=== PATIENT | female | born 1975 | race Asian ===

== ENCOUNTER 2022-04-04 13:33 | Outpatient (CLI) | payer OTHER, SELFPAY ==
--- NOTE | ~2022-04-04 | MMUS_ITS ---
EXAMINATION: MM diagnostic stanislav BI w gt, US breast BI complete HISTORY: TECHNIQUE: Additional 3-D tomosynthesis images of were performed and synthetic 2-D images were genera nahum. CAD analysis was submitted and interpreted. High resolution breast ultrasound was performed. COMPARISON: None BREAST PARENCHYMAL COMPOSITION: The breasts are extremely dense, which lowers the sensitivity of mamm ography. FINDINGS: MAMMOGRAPHIC FINDINGS: No suspicious mass or architectural distortion, Alina calcification, skin thickening or retraction of either breast is evident. The extremely dense tissue may obscure masses. Bilateral complete ultrasound examination was performe d. ULTRASOUND: A normal appearing lymph node is noted in the left axilla. No suspicious mass or shadowing, cyst or other significant sonographic abnormality of either breast i s noted. IMPRESSION: 1. No mammographic evidence of malignancy 2. Routine mammographic screening is recommended BI-RADS Category 1: Negative Reviewed, dictated and finalized at location A. IMPRESSION: 1. No mammographic evidence of malignancy 2. Routine mammographic screening is recommended BI-RADS Category 1: Negative
== END 2022-04-04 13:34 | disposition home or self-care (01) ==
PROVIDERS: PCP Internal Medicine; Visit Provider Nurse Practitioner
DX: N63.0 Unspecified lump in unspecified breast (principal)
CPT/HCPCS: 76641; 77062; 77066; G0279

== ENCOUNTER 2024-07-19 14:50 | Outpatient (CLI) | payer OTHER, SELFPAY ==
--- NOTE | ~2024-07-19 | MM_ITS ---
EXAMINATION: MM screening stanislav BI w gt HISTORY: Screening mammogram TECHNIQUE: Craniocaudal and mediolateral oblique 3-D tomosynthesis images were obtained and synthetic 2-D images were generated. CAD analysis was submitted and interpreted. COMPARISON: 04/04/2022 BREAST PARENCHYMAL COMPOSITION:Dense: The breasts are extremely dense, which lowers the sensitivity o f mammography. FINDINGS: Focal asymmetry noted in the upper right breast on MLO view. No parenchymal abnormalities l eft breast. No suspicious mammographic calcifications. IMPRESSION: Focal asymmetry upper right breast on MLO view. Spot compression and true lateral views, and possibl y ultrasound, are recommended for further evaluation. BI-RADS Category 0: Incomplete: Needs additional imaging evaluation. Reviewed, dictated and finalized at location . AD WINDER IMPRESSION: Focal asymmetry upper right breast on MLO view. Spot compression and true late ral views, and possibly ultrasound, are recommended for further evaluation. BI-RADS Category 0: Incomplete: Needs additional imaging evaluation.
== END 2024-07-19 14:51 | disposition home or self-care (01) ==
PROVIDERS: PCP Internal Medicine; Visit Provider Student in an Organized Health Care Education/Training Program
DX: Z12.31 Encounter for screening mammogram for malignant neoplasm of breast (principal); R92.8 Other abnormal and inconclusive findings on diagnostic imaging of breast
CPT/HCPCS: 77063; 77067

== ENCOUNTER 2024-08-30 13:30 | Outpatient (CLI) | payer OTHER, SELFPAY ==
--- NOTE | ~2024-08-30 | MM_ITS ---
EXAMINATION: MM diagnostic stanislav RT w tg HISTORY: Focal asymmetry within the upper right breast on screening MLO view only TECHNIQUE: ML and mediolateral oblique 3-D tomosynthesis images were obtained and synthetic 2-D image s were generated. COMPARISON: 07/19/2024 and 04/04/2022. Reference is also made to an ultrasound examination dated 022 BREAST PARENCHYMAL COMPOSITION: The breasts are extremely dense, which lowers the sensitivity of mamm ography. FINDINGS: The asymmetry completely effaces with spot compression likely representing a summation hardik fact (overlapping fibroglandular tissues) for which no further follow-up is needed. IMPRESSION: 1. No mammographic or tomographic evidence of malignancy. 2. Recommend resumption of screening mammography in one year. BI-RADS Category 2: Benign finding(s). Reviewed, dictated and finalized at location A. R COVERINGS INSTALLER
--- OUTSIDE RECORDS SUMMARY | 2024-08-30 15:31 | XMS_ITS | Clinical Summary ---
Author Organization [facility] Address [address] [place] [address] Care Team Providers Care Airset Caster Name Role Phone Darien Eduardo MD Primary Care Provider [phone] Allergies No known active allergies Medications triamcinolone (KENALOG) 0.1 % ointment 4 Active albuterol sulfate HFA 108 (90 Base) MCG/ACT inhalerIndicati ons:Bronchitis Inhale 2 puffs into the lungs every 6 (six) hours as needed for Wheezing. 18 g 4 Active Na sulfate-K sulfate-Mg sulfate (SUPREP BOWEL PREP KIT) 17.5-3.13-1.6 GM/177ML SolutionIndicat ions:Screening for colon cancer Take 177 mLs by mouth every 12 (twelve) hours. Per GI instructions 354 mL 5 Active sertraline (ZOLOFT) 25 MG tabletIndicatio ns:Anxiety Take 1 tablet (25 mg total) by mouth daily. 30 tablet 1 5 Active Active Problems Problem Noted Date Diagnosed Date Underweight 04/09/2022 Resolved Problems Problem Noted Date Diagnosed Date Resolved Date Screening for colon cancer 07/29/2024 0 08/01/2024 Atypical squamous cells of u ndetermined significance (ASCUS) on Papanicolaou smear of cervix 02/22/2019 05/19/2024 Overview (05/19/2024): Atyp squam cell of undet signfc cyto smr crvx (ASC-US);Recorded Elsewhere: No Location: [facility] Source: EHR Chronic: N Practice ID: [id number] Billable Time: 10:00:00 AM 39 weeks gestation of ([facility]) 04/30/2017 05/19/2024 Overview (05/19/2024): 39 weeks gestation of ;Practice ID: [id number] Encounters Date Type Department Care Team Description 08/25/2024 Telephone [facility] [place] [address] [facility] [address] [place] [address] Darien Eduardo MD Question 08/12/2024 Telephone [facility] - [facility] [address] [place] [id number] Landon Diallo MD FYI 08/11/2024 Telephone [facility] [place] [address] [facility] [address] [place] [address] Darien Eduardo MD Information 08/11/2024 Telephone [facility] [place] [address] [place] [address] Darien Eduardo MD Referral 08/09/2024 Telephone [facility] [place] [address] [facility] [address] [address] [place] [address] Darien Eduardo MD Follow Up Call 08/01/2024 2:00 PM APICULTURIST [facility] [place] [address] [facility] [address] [address] [place] [address] Darien Eduardo MD Follow Up 08/01/2024 - 08/01/2024 11:59 PM APICULTURIST Hospital Encounter [facility]-[address] [address] Darien Eduardo MD Discharge Disposition: Home or Self Care (Routine Discharge) 08/01/2024 Travel 07/29/2024 Orders Only [facility] Medical [facility] - [facility] [address] [place] [address] Landon Diallo MD 07/19/2024 Scan HEALTH INFO SRVCS Scanned, [facility] Mammogram (SCAN) 06/27/2024 8:40 AM APICULTURIST [facility] [place] [address] [place] [address] Darien Eduardo MD Physical (Pt has been fasting ) 06/27/2024 Telephone [facility] [place] [address] [place] [address] Darien Eduardo MD Medication 06/27/2024 Travel from Last 3 Months Immunizations Name Administration Dates Next Due Fluzone (IIV3, Trivalent, 0.5 ML Prefilled Syrin ge) 06/27/2024 Fluzone 6 Months+ Quad (0.5 mL Prefilled Syringe ) 04/09/2022 Influenza (Generic) 04/02/2017 Influenza Adult (Generic) 05/02/2023,05/15/2021 MODERNA COVID-19 (12+), MRNA , LNP-S, PF, 50 MCG/0.5 ML (SPIKEVAX) 05/02/2023 Tdap (Generic) 04/02/2017 Family History Medical History Relation Comments Cancer Maternal Uncle 1 Tongue cancer Vision loss Maternal Uncle 2 Retinal detachm ent Miscarriages / Stillbirths Mother Relation Status Comments Maternal Uncle 1 Maternal Uncle 2 Mother Social History Tobacco Use Types Packs/Day Years Used Date Smoking Tobacco: Former Cigarettes 0.3 5 0 07/06/2003 - 07/06/2008 Smokeless Tobacco: Never Tobacco Cessation:Counseling Given: Yes Comments:counseled by Dr Eduardo Alcohol Use Standard Drinks/Week Comments Yes 3.3 (1 standard drink = 0.6 oz p ure alcohol) PHQ-2 Answer Date Recorded Patient Health Questionnaire-2 Score 2 08/01/2024 Comments No Sex and Gender Information Value Date Recorded Sex Assigned at Not on file Legal Sex Female 1:30 AM CDT Gender Identity Not on file Sexual Orientation Not on file Last Filed Vital Signs Vital Sign Reading Time Taken Comments Blood Pressure 103/68 08/01/2024 2:01 PM APICULTURIST Pulse 74 08/01/2024 2:01 PM APICULTURIST Temperature 36.6 C (97.8 F) 08/01/2024 2:01 PM APICULTURIST Respiratory Rate 16 08/01/2024 2:01 PM APICULTURIST Oxygen Saturation 99% 08/01/2024 2:01 PM APICULTURIST Inhaled Oxygen Concentration - - Weight 49.5 kg (109 lb 1.6 oz) 08/01/2024 2:01 P M APICULTURIST Height 165.1 cm (5' 5 ) 08/01/2024 2:01 PM APICULTURIST Body Mass Index 18.16 08/01/2024 2:01 PM APICULTURIST Plan of Treatment Upcoming Encounters Date Type Department Care Team (Late st Contact Info) Description 07/03/2025 9:40 AM APICULTURIST Office Visit [facility] Multispecialty Care - [place] [address] [address] [place], [place] [id number] [place] [address] [place] [address] [address] [place] [address] Health Maintenance Due Date Last Done Comments Colorectal Cancer Screening Colonoscopy (10 Years) 1977 Hepatitis B Vaccines (1 of 3 - 19+ 3-dose series) 1996 COVID-19 Vaccine ( season) 2024 05/02/2023, 05/14/2022, 05/15/2021, Additional history exists Annual Physical 06/27/2025 06/27/2024, 04/09/2022 Mammogram Screening 07/19/2026 07/19/2024, 07/19/2024, 04/04/2022 Cervical Cancer Screening Pap with HPV Testing (Age 30 to 64) Every 5 Years 04/01/2027 04/01/2022 DTaP, Tdap and Td Vaccines (2 - Td or Tdap) 04/02/2027 04/02/2017 Cervical Cancer Screening Pap Smear (Age 30 to 64) Every 3 Years 05/23/2027 05/23/2024, 04/01/2022 Cervical Cancer Screening with HPV 05/23/2027 Hepatitis C Completed 04/09/2022 Influenza Adult Completed 06/27/2024, 04/06, 04/09/2022, Additional history exists PHQ-2 (Physician [place]) Completed 08/01/2024 Meningococcal B Vaccine Aged Out No l onger eligible based on patient's age to complete this topic Meningococcal Vaccine Aged Out No ramiro jie eligible based on patient's age to complete this topic Pneumococcal Vaccine: Pediatrics (0 to 5 Years) and At-Risk Patients (6 to 64 Years) Aged Out No longer eligible based on patient's age to complete this topic RSV Immunizations Under 20 Months Aged Out No longer eligible based on patient's age to complete this topic Procedures Procedure Name Priority Date/Time Associated Diagnosis Comments ESTROGEN, TOTAL Routine 08/01/2024 2:48 PM APICULTURIST Drug therapy PROGESTERONE Routine 08/01/2024 2:48 PM APICULTURIST Drug therapy PROLACTIN Routine 08/01/2024 2:48 PM APICULTURIST Drug therapy FSH, FOLLICLE STIM HORMONE Routine 08/01/2024 2:48 PM APICULTURIST Drug therapy LH, LUTEINIZING HORMONE Routine 08/01/2024 2:48 PM APICULTURIST Drug therapy COLLECTION VENOUS BLOOD VENIPUNCTURE Routine 08/01/2024 2:16 PM APICULTURIST Drug therapy MAMMOGRAM GENERIC (SCAN ORDER) 07/19/2024 MAMMOGRAM GENERIC (SCAN ORDER) 07/19/2024 HEMOGLOBIN, GLYCOSYLATED Routine 06/27/2024 9:27 AM APICULTURIST Annual physical exam General medical exam Screening for diabetes mellitus Drug therapy TSH W/REFLEX Routine 06/27/2024 9:27 AM APICULTURIST Annual physical exam General medical exam Screening for hypothyroidism Drug therapy LIPID PANEL Routine 06/27/2024 9:27 AM APICULTURIST Annual physical exam General medical exam Screening for hyperlipidemia Drug therapy COMPREHENSIVE METABOLIC PANEL Routine 06/27/2024 9:27 AM APICULTURIST Annual physical exam General medical exam Drug therapy CBC W/DIFF AUTOMATED Routine 06/27/2024 9:27 AM APICULTURIST Annual physical exam General medical exam Drug therapy COLLECTION VENOUS BLOOD VENIPUNCTURE Routine 06/27/2024 9:06 AM APICULTURIST Annual physical exam General medical exam Drug therapy URINALYSIS AUTO DIP Routine 06/27/2024 Annual physical exam General medical exam Drug therapy HEPATITIS C ANTIBODY Routine 04/09/2022 12:06 PM CDT Annual physical exam Encounter for medical examination to establish care General medical exam Encounter for hepatitis C screening test for low risk patient OUTSIDE CYTOPATH CERV/VAG INTERPRET (PAP) 04/01/2022 from Last 3 Months or Most Recently Relevant to Health Maintenance Results * LH, LUTEINIZING HORMONE (08/01/2024 2:48 PM APICULTURIST) Luteinizing Hormone 4.6 MIU/ML 08/01 9:04 PM APICULTURIST [facility] Comment: FOLLIC PHASE: 1.9 TO 12.8 mIU/mL MID CYCLE: 22.8 TO 76.1 mIU/mL LUTEAL PHASE: 0.6 TO 13.5 mIU/mL POST MENOPAUSAL W/O HRT: 8.6 TO 61.8 mIU/mL ASSAY PERFORMED BY CHEMILUMINESCENCE METHODOLOGY USING SIEMENS [employer]. PATIENT RESULTS DETERMINED BY ASSAYS USING DIFFERENT MANUFACTURERS FOR METHODS MAY NOT BE COMPARABLE. 08/01/2024 2:48 PM APICULTURIST Darien Eduardo MD LABORATORY Final Result [facility] [address] [place] [address], [id number] * FSH, FOLLICLE STIM HORMONE (08/01/2024 2:48 PM APICULTURIST) FSH 3.9 MIU/ML 08/01/2024 9:04 PM APICULTURIST [facility] Comment: FOLLIC PHASE: 2.3 TO 12.6 mIU/mL MID CYCLE: 5.2 TO 17.5 mIU/mL LUTEAL PHASE: 1.7 TO 12.9 mIU/mL POST MENOPAUSAL NOT ON THERAPY: 12.7 TO 132.2 mIU/mL ASSAY PERFORMED BY CHEMILUMINESCENCE METHODOLOGY USING SIEMENS [employer] [place]. PATIENT RESULTS DETERMINED BY ASSAYS USING DIFFERENT MANUFACTURERS FOR METHODS MAY NOT BE COMPARABLE. 08/01/2024 2:48 PM APICULTURIST Darien Eduardo MD LABORATORY Final Result Performing Organization Address City/[facility]/ZIP Co de Phone Number [facility] [address] [place] [phone], [id number] * ESTROGEN, TOTAL ([facility] ONLY) (08/01/2024 2:48 PM APICULTURIST) ESTROGEN TOTAL S/P/B 521 pg/mL [facility] Comment: Reference Ranges for Total Estrogen: Follicular Phase: 51-601 Luteal Phase: 87-1194 Postmenopausal: < or = 214 08/01/2024 2:48 PM APICULTURIST 08/03/2024 6:01 AM APICULTURIST Narrative Resulting Agency Comment Performing Organization Information: Site ID: [id number] Name: [employer]/[facility], Address: [address] [place] [phone] Director: Em Toledo MD,PhD,LAYNE Draien Eduardo MD LABORATORY Final Result Performing Organization Address City/[facility] de Phone Number KARINA PATTON - RADHA ORDERS [facility] [address] [place] [phone], * PROGESTERONE (08/01/2024 2:48 PM APICULTURIST) PROGESTERONE 0.5 NG/ML 08/01/2024 9:04 PM APICULTURIST [facility] Comment: FOLLIC PHASE: 0.2 TO 1.7 ng/mL LUTEAL PHASE: 2.3 TO 24.2 ng/mL POST MENAPAUSAL: <0.2 TO 0.9 ng/mL 1ST TRIMESTER: 11.4 TO 41.0 ng/mL 2ND TRIMESTER: 13.9 TO 156.0 ng/mL 3RD TRIMESTER: 51.4 TO >200.0 ASSAY PERFORMED BY CHEMILUMINESCENCE METHODOLOGY USING SIEMENS [employer]ENT. PATIENT RESULTS DETERMINED BY ASSAYS USING DIFFERENT MANUFACTURERS FOR METHODS MAY NOT BE COMPARABLE. 08/01/2024 2:48 PM APICULTURIST Darien Eduardo MD LABORATORY Final Result Performing Organization Address [facility] de Phone Number [facility] [address] [place] [address], [id number] * PROLACTIN (08/01/2024 2:48 PM APICULTURIST) PROLACTIN 17.8 2.2 - 30.3 NG/ML 08/01/2024 9:04 PM APICULTURIST [facility] Comment: ASSAY PERFORMED BY CHEMILUMINESCENCE METHODOLOGY USING SIEMENS [employer]. PATIENT RESULTS DETERMINED BY ASSAYS USING DIFFERENT MANUFACTURERS FOR METHODS MAY NOT BE COMPARABLE. 08/01/2024 2:48 PM APICULTURIST Darien Eduardo MD LABORATORY Final Result Performing Organization Address [facility] de Phone Number [facility] [address] [place] [address], [id number] * MAMMOGRAM GENERIC (SCAN ORDER) (07/19/2024) Only the most recent of2 resultswithin the time period is included. Anatomical Region Laterality Modality Other 07/19/2024 [facility] Scanned SCANNING Final Resu lt * TSH W/REFLEX (06/27/2024 9:27 AM APICULTURIST) TSH 1.629 0.358 - 3.740 uIU/ML 06/27/2024 3:00 PM APICULTURIST [facility] 06/27/2024 9:27 AM APICULTURIST us Darien Eduardo MD LABORATORY Final Result Performing Organization Address City/[facility] Co de Phone Number ESTEBAN PIERREHUTin [place] [address] [place] [address], [place] [phone] * HEMOGLOBIN, GLYCOSYLATED (06/27/2024 9:27 AM APICULTURIST) HGB A1C 5.3 4.5 - 6.2 % 06/27/2024 3:27 PM APICULTURIST [facility] ESTIMATED AVG GLUCOSE 105 74 - 106 MG/DL 06/27/2024 3:27 PM APICULTURIST [facility] 06/27/2024 9:27 AM APICULTURIST us Darien Eduardo MD LABORATORY Final Result Performing Organization Address [facility] Co de Phone Number [facility] [place] [address] [place] [address], [place] [phone] * COMPREHENSIVE METABOLIC PANEL (06/27/2024 9:27 AM APICULTURIST) SODIUM S/P/B 144 136 - 145 MMOL/L 06/27/2024 3:00 PM APICULTURIST [facility] POTASSIUM S/P/B 4.2 3.5 - 5.1 MMOL/L 06/27/2024 3:00 PM APICULTURIST [facility] CHLORIDE S/P/B 106 98 - 107 MMOL/L 06/27/2024 3:00 PM APICULTURIST [facility] CO2 31.8 21 - 32 MMOL/L 06/27/2024 3:00 PM [facility] GLUCOSE 92 70 - 99 MG/DL 06/27/2024 3:00 PM [facility] BUN 12 7 - 18 MG/DL 06/27/2024 3:00 PM [facility] CREATININE S/P/B 0.68 0.55 - 1.02 MG/DL 06/27/2024 3:00 PM [facility] CALCIUM S/P/B 8.4 8.4 - 10.5 MG/DL 06/27/2024 3:00 PM [facility] BILIRUBIN TOTAL S/P/B 0.5 0.2 - 1.0 MG/DL 06/27/2024 3:00 PM [facility] ALKALINE PHOSPHATASE S/P/B 89 39 - 100 U/L 06/27/2024 3:00 PM [facility] AST 18 15 - 37 U/L 06/27/2024 3:00 PM [facility] ALT 23 14 - 59 U/L 06/27/2024 3:00 PM [facility] TOTAL PROTEIN S/P/B 7.1 6.4 - 8.2 G/DL 06/27/2024 3:00 PM [facility] ALBUMIN S/P/B 3.7 3.4 - 5.0 G/DL 06/27/2024 3:00 PM [facility] ANION GAP 6.2 5 - 15 MMOL/L 06/27/2024 3:00 PM [facility] Comment:REFERENCE RANGE NOT ESTABLISHED OSMOLALITY (CALC) 297 MOSM/KG 024 3:00 PM [facility] Comment:REFERENCE RANGE NOT ESTABLISHED GFR ESTIMATE >90 >90 ML/MIN/1. 73 M2 06/27/2024 3:00 PM [facility] GFR NOTES GFR REFERENCE S: 06/27/2024 3:00 PM [facility] Comment: THE ESTIMATED GFR IS CALCULATED USING THE 2020 CKD-EPI EQUATION. THE FOLLOWING CATEGORIES FOR GRADING RENAL FUNCTION ARE RECOMMENDED BY THE INTERNATIONAL SOCIETY OF NEPHROLOGY (KDIGO 2012 CLINICAL PRACTICE GUIDELINE). G1,NORMAL OR HIGH: >89 ml/min/1.73 m2 G2,MILDLY DECREASED: 60-89 ml/min/1.73 m2 G3A,MILDLY TO MODERATELY DECREASED: 45-59 ml/min/1.73 m2 G3B,MODERATELY TO SEVERELY DECREASED: 30-44 ml/min/1.73 m2 G4,SEVERELY DECREASED: 15-29 ml/min/1.73 m2 G5,KIDNEY FAILURE: <15 ml/min/1.73 m2 06/27/2024 9:27 AM APICULTURIST us Darien Eduardo MD LABORATORY Final Result [facility] [address] [place] [address], * LIPID PANEL (06/27/2024 9:27 AM APICULTURIST) CHOLESTEROL 156 <200 MG/DL 06/27/2024 3:00 PM [facility] TRIGLYCERIDES 48 <150 MG/DL 06/27/2024 3:00 PM [facility] HDL 80 >40 MG/DL 06/27/2024 3:00 PM APICULTURIST [facility] LDL-C 66 <100 MG/DL 06/27/2024 3:00 PM [facility] VLDL CALCULATION 10 5 - 28 MG/DL 06/27/2024 3:00 PM [facility] CHOL/HDL RATIO 2.0 0.0 - 4.0 06/27/2024 3:00 PM [facility] LDL/HDL 0.8 0.41 - 2.13 06/27/2024 3:00 PM APICULTURIST [facility] NON HDL CHOLESTEROL 76 <140 MG/DL 06/27/2024 3:00 PM APICULTURIST [facility] 06/27/2024 9:27 AM APICULTURIST us Darien Eduardo MD LABORATORY Final Result [facility] [place] [address] [place] [address], * (ABNORMAL) CBC W/DIFF AUTOMATED (06/27/2024 9:27 AM APICULTURIST) [facility] WBC 5.44 4.00 - 10.80 x10'3/uL 06/27/2024 2:56 PM APICULTURIST [facility] RBC 4.61 4.10 - 5.40 x10'6/uL 06/27/2024 2:56 PM APICULTURIST [facility] HGB 14.0 12.0 - 16.0 G/DL 06/27/2024 2:56 PM [facility] HCT 43.3 36.0 - 47.0 % 06/27/2024 2:56 PM [facility] MCV 93.9 78.0 - 100.0 FL 06/27/2024 2:56 PM [facility] MCH 30.4 27.0 - 31.0 PG 06/27/2024 2:56 PM [facility] MCHC 32.3(L) 33.0 - 36.0 G/DL 06/27/2024 2:56 PM [facility] RDW 12.7 11.5 - 14.5 % 06/27/2024 2:56 PM [facility] PLT 217 150 - 350 x10'3/uL 06/27/2024 2:56 PM [facility] MPV 10.5(H) 7.4 - 10.4 FL 06/27/2024 2:56 PM [facility] DIFFERENTIAL TYPE AUTOMATED DIFFERENTIAL 06/27/2024 2:56 PM [facility] NEUTROPHILS % 56.5 % 06/27/2024 2:56 PM [facility] LYMPHOCYTES % 32.4 % 06/27/2024 2:56 PM [facility] MONOCYTES % 8.1 % 06/27/2024 2:56 PM APICULTURIST [facility] EOSINOPHILS % 1.7 % 06/27/2024 2:56 PM APICULTURIST [facility] BASOPHILS % 1.1 % 06/27/2024 2:56 PM APICULTURIST [facility] IMMATURE GRANS % 0.2 % 06/27/2024 2:56 PM APICULTURIST [facility] ABS. NEUTROPHILS 3.08 1.60 - 8.30 x10'3/uL 06/27/2024 2:56 PM APICULTURIST [facility] ABS. LYMPHOCYTES 1.76 0.80 - 4.70 x10'3/uL 06/27/2024 2:56 PM APICULTURIST [facility] ABS. MONOCYTES 0.44 0.00 - 1.50 x10'3/uL 06/27/2024 2:56 PM APICULTURIST [facility] ABS. EOSINOPHILS 0.09 0.00 - 0.40 x10'3/uL 06/27/2024 2:56 PM APICULTURIST [facility] ABS. BASOPHILS 0.06 0.00 - 0.20 x10'3/uL 06/27/2024 2:56 PM APICULTURIST [facility] ABS. IMMATURE GRANULOCYTES 0.01 0.00 - 0.03 x10'3/uL 06/27/2024 2:56 PM APICULTURIST [facility] 06/27/2024 9:27 AM APICULTURIST us Darien Eduardo MD LABORATORY Final Result [facility] [address] [place] [address], * URINALYSIS AUTO DIP (06/27/2024) COLOR (U) YELLOW YELLOW [address], [place] TRANSPARENCY CLEAR CLEAR [address], [place] GLUCOSE (U) NEGATIVE NEGATIVE MG/DL [address], [place] BILIRUBIN (U) NEGATIVE NEGATIVE MG[address], [place] KETONES MG/DL (U) NEGATIVE NEGATIVE MG/DL [address], [place] SPECIFIC GRAVITY (U) >=1.030 1.001 - 1.035 [address], [place] BLOOD (U) NEGATIVE NEGATIVE [address], [place] U PH 6.0 5.0 - 9.0 [address], [place] PROTEIN (U) NEGATIVE NEGATIVE mg/dL [address], [place] UROBILINOGEN 0.2 0.2 - 1.0 EU/dL = mg/dL MG[address], [place] NITRITES NEGATIVE NEGATIVE MG/DL MG[address], [place] LEUKOCYTES (U) NEGATIVE NEGATIVE MG-[address], [place] URINE SPECIMEN OBTAINED BY CLEAN CATCH PROCEDURE / Unknown 06/27/2024 us Darien Eduardo MD URINE ORDERABLES Final Result [address], [place] [address] [place] [address], [place] [phone] * HEPATITIS C AB ([facility] ONLY) (04/09/2022 12:06 PM CDT) HEPATITIS C AB NON-REACTI VE NON-REACT LOUISA 04/09/2022 10:08 PM CDT [facility] Comment: ANTIBODIES TO HCV NOT DETECTED. DOES NOT EXCLUDE THE POSSIBILITY OF EXPOSURE TO HCV. 04/09/2022 12:0 6 PM CDT us Darien Eduardo MD LABORATORY Final Result [facility] [address] [place] [address], [place] [phone] [id number] * PAP SMEAR WITH HPV (04/01/2022) 04/01/2022 [facility] Scanned SCANNING Final Resu lt from Last 3 Months or Most Recently Relevant to Health Maintenance Insurance [facility] Care Teams Airset Caster Relationship Specialty Start Date End Date Darien Eduardo MD [address] [place] [id number] PCP - General INTERNAL MEDICINE 04/09/22
--- OUTSIDE RECORDS SUMMARY | 2024-08-30 15:31 | XMS_ITS | Referral Summary ---
Author Organization [facility] Address [address] [place] [address] Care Team Providers Care Pediatric Cns Name Role Phone Angela Jung MD Primary Care Provider [phone] Liz Parikh GRANULAR OPERATOR-VPK TEACHER Unavailable Source Comments [facility],non-owned Affiliates and Associated Physician Practices is amultiple site organization consisting of ambulatory clinics and hospital sitesin [place], [place], [place] and [place]. This disclosure is being madepursuant to the Care Everywhere program and may not contain all information available regarding this patient. Last updated 18.[facility] Allergies No known active allergies Medications * Be aware that medications may not be up to date on this document. Alwaysverify current medications with the patient. Medication Sig Dispensed Refills Start Date End Date Status w/o A Vit-Fe Fum-FA (PRENATA PO) Active Ferrous Gluconate (IRON 27 PO) Active Social History Tobacco Use Types Packs/Day Years Used Date Smoking Tobacco: Never Smokeless Tobacco: Never Sex and Gender Information Value Date Recorded Sex Assigned at Not on file Gender Identity Not on file Sexual Orientation Not on file Last Filed Vital Signs Vital Sign Reading Time Taken Comments Blood Pressure 88/60 03/06/2017 3:17 PM CDT Pulse 93 03/06/2017 3:17 PM CDT Temperature 36.9 C (98.4 F) 03/06/2017 3:17 PM CDT Respiratory Rate 16 03/06/2017 3:17 PM CDT Oxygen Saturation 98% 03/06/2017 3:17 PM CDT Inhaled Oxygen Concentration - - Weight 52.2 kg (115 lb) 03/06/2017 3:17 PM CDT Height 160 cm (5' 3 ) 03/06/2017 3:17 PM CDT Body Mass Index 20.37 03/06/2017 3:17 PM CDT Plan of Treatment Not on file Procedures Procedure Name Priority Date/Time Associated Diagnosis Comments MAMMO BILAT DIAGNOSTIC Routine 04/04/2022 from Last 3 Months or Most Recently Relevant to Health Maintenance Results * MAMMO BILAT DIAGNOSTIC (04/04/2022) Anatomical Region Laterality Modality Breast Bilateral Mammography Scanned Document MAMMO ORDERABLES from Last 3 Months or Most Recently Relevant to Health Maintenance Care Teams Pediatric Cns Relationship Specialty Start Date End Date Angela Jung MD [address] [place] [address] PCP - General Family Medicine 03/06/17 Liz Parikh, YON-VPK TEACHER [address] [place] [address] Nurse Practitioner [facility] 04/09/22
--- OUTSIDE RECORDS SUMMARY | 2024-08-30 15:31 | XMS_ITS | Clinical Summary ---
Author Organization [facility] - [facility] Address [address] [place] [address] Phone Care Team Providers Care Residential Leasing Manager Name Role Phone José Miguel Prince MD Primary Care Provider Social History Tobacco Use Types Packs/Day Years Used Date Smoking Tobacco: Never Assessed Comments Unknown Sex and Gender Information Value Date Recorded Sex Assigned at Not on file Legal Sex Female 10:07 AM PARTS FINISHER Gender Identity Not on file Sexual Orientation Not on file Plan of Treatment Health Maintenance Due Date Last Done Comments DTAP/TDAP/TD VACCINES (1 - Tdap) 1996 HEPATITIS B VACCINES (1 of 3 - 19+ 3-dose series) 02/1996 CERVICAL CANCER SCREENING 2007 BREAST CANCER SCREENING 2017 COLORECTAL SCREENING 2022 Colorectal Cancer Screening 2022 FIT-DNA Q 3 years 2022 FIT/FOBT Q 1 year 2022 Flex Sig/CT Colonography Q 5 years 2022 INFLUENZA VACCINE (#1) 2024 Insurance [employer] OPEN ACCESS HMO Care Teams Residential Leasing Manager Relationship Specialty Start Date End Date José Miguel Prince MD PCP - General Family Practice 07/29/12
--- OUTSIDE RECORDS SUMMARY | 2024-08-30 15:31 | XMS_ITS | Referral Summary ---
Author Organization [facility] Address [address] [place] [address] Care Team Providers Care Server Manager Name Role Phone Darien Eduardo MD Primary Care Provider [phone] Allergies No known active allergies Medications hydrocortisone 2.5 % cream hydrocortisone 2.5 % topical cream Active levonorgestreL (Mirena) IUD Mirena 21 mcg/24 hours (8 yrs) 52 mg intrauterine device 7 Active metroNIDAZOLE (METROGEL) 0.75 % (37.5mg/5 gram) vaginal gel daily Active albuterol HFA (PROVENTIL HFA,VENTOLIN HFA,PROAIR HFA) 90 mcg/actuation inhaler Inhale 2 puffs every 6 (six) hours as needed 3 Active azithromycin (ZITHROMAX) 250 mg tablet 3 Active benzonatate (TESSALON) 200 mg capsule 3 Active methylPREDNISo lone (MEDROL DOSEPACK) 4 mg Dosepack 3 Active methylPREDNISo lone (MEDROL) 4 mg tablet 6 TABLETS ON DAY ONE, 5 TABLETS DAY TWO, 4 TABLETS DAY THREE, 3 TABLETS DAY FOUR, 2 TABLETS DAY FIVE, AND 1 TABLET DAY SIX 3 Active Active Problems Problem Noted Date Diagnosed Date Underweight 04/09/2022 Atypical squamous cells of u ndetermined significance (ASCUS) on Papanicolaou smear of cervix 02/22/2019 Overview (04/24/2023): Atyp squam cell of undet signfc cyto smr crvx (ASC-US);Recorded Elsewhere: No Location: [facility] Source: EHR Chronic: N Practice ID: [id number] Billable Time: 10:00:00 AM Precipitate labor 04/30/2017 Overview (04/24/2023): Precipitate labor;Practice ID: [id number] Hemorrhage affecting 09/23/2016 Overview (04/24/2023): Other hemorrhage in early ;Recorded Elsewhere: No Location: [facility] Source: EHR Chronic: N Practice ID: [id number] Billable Time: 10:00:00 AM Secondary amenorrhea 09/17/2016 Overview (04/24/2023): Secondary amenorrhea;Recorded Elsewhere: No Location: [facility] Source: EHR Chronic: N Practice ID: [id number] Billable Time: 02:15:00 PM Delivery normal 11/30/2012 Overview (04/24/2023): Normal delivery;Practice ID: [id number] Uterine size-date discrepancy 06/06/2012 Overview (04/24/2023): UTERINE SIZE SMOOTH-ANTEPAR;Recorded Elsewhere: No Location: [facility] Source: EHR Chronic: N Practice ID: [id number] Billable Time: 02:00:00 PM Amenorrhea 05/18/2012 Overview (04/24/2023): Absence of menstruation;Recorded Elsewhere: No Location: [facility] Source: EHR Chronic: N Practice ID: [id number] Billable Time: 03:30:00 PM Social History Tobacco Use Types Packs/Day Years Used Date Smoking Tobacco: Never Assessed Comments Unknown Sex and Gender Information Value Date Recorded Sex Assigned at Not on file Legal Sex Female 11:38 AM CDT Gender Identity Not on file Sexual Orientation Not on file Last Filed Vital Signs Vital Sign Reading Time Taken Comments Blood Pressure 104/60 04/24/2023 5:03 PM CDT Pulse 68 04/24/2023 5:03 PM CDT Temperature 37.2 C (98.9 F) 04/24/2023 5:03 PM CDT Respiratory Rate 20 04/24/2023 5:03 PM CDT Oxygen Saturation 99% 04/24/2023 5:03 PM CDT Inhaled Oxygen Concentration - - Weight 47.6 kg (105 lb) 04/24/2023 5:03 PM CDT Height 160 cm (5' 3 ) 04/24/2023 5:03 PM CDT Body Mass Index 18.6 04/24/2023 5:03 PM CDT Plan of Treatment Not on file Insurance [employer] Care Teams Server Manager Relationship Specialty Start Date End Date Darien Eduardo MD [address] [place] [id number] PCP - General Internal Medicine 10/22/22
--- OUTSIDE RECORDS SUMMARY | 2024-08-30 15:31 | XMS_ITS | Clinical Summary ---
Author Organization [facility] Address [address] [place] [address] Care Team Providers Care Director Graphics Name Role Phone Darien Eduardo MD Primary Care Provider [phone] Allergies No known active allergies Medications hydrocortisone [...] cyto smr crvx (ASC-US);Recorded Elsewhere: No Location: [facility] Source: EHR Chronic: N Practice ID: [id number] Billable Time: 10:00:00 AM Precipitate labor 04/30/2017 Overview (04/24/2023): Precipitate labor;Practice ID: [id number] Hemorrhage affecting 09/23/2016 Overview (04/24/2023): Other hemorrhage in early ;Recorded Elsewhere: No Location: [facility] Source: EHR Chronic: N Practice ID: [id number] Billable Time: 10:00:00 AM Secondary amenorrhea 09/17/2016 Overview (04/24/2023): Secondary amenorrhea;Recorded Elsewhere: No Location: [facility] Source: EHR Chronic: N Practice ID: [id number] Billable Time: 02:15:00 PM Delivery normal 11/30/2012 Overview (04/24/2023): Normal delivery;Practice ID: [id number] Uterine size-date discrepancy 06/06/2012 Overview (04/24/2023): UTERINE SIZE SMOOTH-ANTEPAR;Recorded Elsewhere: No Location: [facility] Source: EHR Chronic: N Practice ID: [id number] Billable Time: 02:00:00 PM Amenorrhea 05/18/2012 Overview (04/24/2023): Absence of menstruation;Recorded Elsewhere: No Location: [facility] Source: EHR Chronic: N Practice ID: [id number] Billable Time: 03:30:00 PM Social History Tobacco Use Types Packs/Day Years Used Date Smoking Tobacco: Never Assessed Comments Unknown Sex and Gender Information Value Date Recorded Sex Assigned at Not on file Legal Sex Female 11:38 AM CDT Gender Identity Not on file Sexual Orientation Not on file Obstetrics History Last Filed Vital Signs Vital Sign Reading [...] 04/24/2023 5:03 PM CDT Plan of Treatment Health Maintenance Due Date Last Done Comments Breast Cancer Screening-Mammogram 1977 Cervical Cancer Screening 1977 Colon Cancer Screening-Colonoscopy 1977 Depression Screening 1977 Hepatitis C Screening 1977 Hepatitis B Screening 1995 Regular Well Visit/Exam 18-64 1995 Covid-19 Vaccine ( season) 2024 05/14/2022, 05/15/2021, 09/13/2020 Influenza Vaccine (#1) 2024 , 05/15/2021, 05/15/2021, Additional history exists DTaP/Tdap/Td Vaccine (2 - Td or Tdap) 04/02/2027 04/02/2017 Pneumococcal vaccine <65 Aged Out No longer eligible based on patient's age to complete this topic Insurance [employer] Care Teams Director Graphics Relationship Specialty Start Date End Date Darien Eduardo MD [address] [place] [address] PCP - General Internal Medicine 10/22/22
--- OUTSIDE RECORDS SUMMARY | 2024-08-30 15:31 | XMS_ITS | Patient Health Summary ---
Author Organization [facility] Address [address] [place] [address] Care Team Providers Care Mailing Specialist Name Role Phone Angela Jung MD Primary Care Provider [phone] Liz Parikh APRN-NETWORK RELATIONS CONSULTANT Unavailable Note from [facility],non-owned Affiliates and Associated Physician Practices is amultiple site organization consisting of ambulatory clinics and hospital sitesin [place], [place], [place] and [place]. This disclosure is being madepursuant to the Care Everywhere program and may not contain all information available regarding this patient. Last updated 18.[facility] Allergies No known active allergies Medications * Be aware that medications may not be up to date on this document. Alwaysverify current medications with the patient. * w/o A Vit-Fe Fum-FA (PRENATA PO) * Ferrous Gluconate (IRON 27 PO) Social History Tobacco Use Types Packs/Day Years [...] Mass Index 20.37 03/06/2017 3:17 PM CDT Procedures * US BREAST BILATERAL COMPLETE(Performed 04/04/2022) * MAMMO BILAT DIAGNOSTIC(Performed 04/04/2022) Results * MAMMO BILAT DIAGNOSTIC (04/04/2022) Anatomical Region Laterality Modality Breast Bilateral Mammography Scanned Document MAMMO ORDERABLES * US BREAST BILATERAL COMPLETE (04/04/2022) Anatomical Region Laterality Modality Breast Bilateral Ultrasound Scanned Document US ORDERABLES Care Teams Mailing Specialist Relationship Specialty Start Date End Date Angela Jung MD [address] [place] [address] PCP - General Family Medicine 03/06/17 Liz Parikh, YON-NETWORK RELATIONS CONSULTANT [address] [place] [address] Nurse Practitioner [facility] 04/09/22
--- OUTSIDE RECORDS SUMMARY | 2024-08-30 15:31 | XMS_ITS | Data Portability ---
Author Organization [facility] Address [address] [place] [address] Care Team Providers Care Jigman Name Role Phone CHANG COX Primary Care Provider Assessment Encounter Date Assessment Date Assessment LastModified by Organization Details LastModified Time 03/18/2021 03/18/2021 Annual gynecological exam performed. Patient will come back in a year unless there are new symptoms. Not available 03/18/2021 11:50:05 04/01/2022 04/01/2022 Annual gynecological exam performed. Patient will come back in a year unless there are new symptoms. Not available 04/01/2022 10:40:46 05/23/2024 05/23/2024 Annual gynecological exam performed. Patient will come back in a year unless there are new symptoms. [email or web address] Not available 05/19/2024 16:45:18 Plan of Treatment Reminders Order Date Submit Date Provider Last Modified By Organization Details Last Modified Time Details Appointments None recorded . Lab pap, IG + HR HPV - HPV regardle ss but if HPV is positive need subtypin g 16,18/45 2023 024 [facility] (Lab), [address], [place], [address], 4 16:17:51 prolacti n, serum 2021 022 [facility] (Lab), [address], [place], [address], 2 06:32:25 TSH, serum or plasma 2021 022 [facility] (Lab), [address], [place], [address], 2 06:32:25 lipid panel, blood 2020 021 [facility] (Lab), [address], [place], [address], 1 04:16:38 CBC w/ auto diff 2020 021 [facility] (Lab), [address], [place], [address], 1 04:16:37 CMP, serum or plasma 2020 021 [facility] (Lab), [address], [place], [address], 1 04:16:38 TSH, serum or plasma 2020 021 [facility] (Lab), [address], [place], [address], 1 04:16:39 HbA1c (hemoglo bin A1c), blood 2020 021 [facility] (Lab), [address], [place], [address], 1 04:16:39 vitamin D, 25-hydro xy, total, serum 2020 021 [facility] (Lab), [address], [place], [address], 1 04:16:40 lh + FSH, serum 2020 021 [facility] (Lab), [address], [place], [address], 1 04:16:40 Referral None recorded . Procedures colonosc opy screenin g (PROC) 2023 [facility], [address], [place], [address], 4 15:42:48 Surgeries None recorded . Imaging MAMMO, screenin g, digital, bilatera l 2023 [facility], [address], [place], [address], 4 04:02:25 MAMMO, diagnost ic, digital, bilatera l 2021 [facility], [address], [place], [address], 2 10:37:56 US, breast, bilatera l, complete 2021 022 [email or web address], [address], [place], [address], 2 13:06:41 Medication Orders triamcin olone acetonid e 0.1 % topical ointment [address] [facility], [place], [address], 4 15:42:46 metronid azole 0.75 % (37.5 mg/5 gram) vaginal gel [address] [facility] [address], [address], [place], [address], 4 15:42:46 metronid azole 0.75 % (37.5 mg/5 gram) vaginal gel 2021 022 [id number], [address], [place], [place], [id number], 4 16:45:14 Metrogel Vaginal 0.75 % (37.5 mg/5 gram) 2020 021 [id number], [address], [place], [place], [id number], 4 16:45:14 Patient TargetsNo targets recorded. Patient InstructionsNo instructions recorded. Reason for Referral None Reported. Results Created Date Observation Date Name Description Value Unit Range Abnormal Flag Note LastModifiedBy Organization Detail LastModifiedTime 03/18/2003/18/2021 CBC W/DIF F WBC 6.5 10'3/ uL 3.6-10 .2 Not Available [facility] (Lab) [address], [place], [address], 03/19/2021 04:16:37 03/18/20 21 03/18/2021 CBC W/DIF F RBC 4.20 10'6/ uL (based on docume nted legal sex) 4.10-5 .30 Not Available [facility] (Lab) [address], [place], [address], 03/19/2021 04:16:37 03/18/2003/18/2021 CBC W/DIF F HGB 12.9 g/dL (based on docume nted legal sex) 11.9-1 5.8 Not Available [facility] (Lab) [address], [place], [address], 03/19/2021 04:16:37 03/18/20 21 03/18/2021 CBC W/DIF F HCT 40.9 % (based on docume nted legal sex) 37.4-4 8.3 Not Available [facility] (Lab) [address] [place], [address], 03/19/2021 04:16:37 03/18/20 21 03/18/2021 CBC W/DIF F MCV 97.0 fL 82.0-9 9.0 Not Available [facility] (Lab) [address], [place], [address], 03/19/2021 04:16:37 03/18/20 21 03/18/2021 CBC W/DIF F MCH 31.0 pg 27.0-3 3.0 Not Available [facility] (Lab) [address], [place], [address], 03/19/2021 04:16:37 03/18/20 21 03/18/2021 CBC W/DIF F MCHC 32.0 g/dL 32.0-3 6.0 Not Available [facility] (Lab) [address], [place], [address], 03/19/2021 04:16:37 03/18/20 21 03/18/2021 CBC W/DIF F RDW 13.0 % 11.0-1 5.0 Not Available [facility] (Lab) [address], [place], [address], 03/19/2021 04:16:37 03/18/20 21 03/18/2021 CBC W/DIF F plt 186 10'3/ uL 150-45 0 Not Available [facility] (Lab) [address], [place], [address], 03/19/2021 04:16:37 03/18/20 21 03/18/2021 CBC W/DIF F MPV 11.1 fL 9.8-12 .7 Not Available [facility] (Lab) [address], [place], [address], 03/19/2021 04:16:37 03/18/20 21 03/18/2021 CBC W/DIF F NRBC's 0.00 % 0 Not Available [facility] (Lab) [address], [place], [address], 03/19/2021 04:16:37 03/18/20 21 03/18/2021 CBC W/DIF F absolute NRBCs 0.0 10'3/ uL 0 Not Available [facility] (Lab) [address], [place], [address], 03/19/2021 04:16:37 03/18/20 21 03/18/2021 CBC W/DIF F neutrophils 59.0 % 37.0-7 2.0 Not Available [facility] (Lab) [address], [place], [address], 03/19/2021 04:16:37 03/18/20 21 03/18/2021 CBC W/DIF F lymphocytes 31.0 % 16.0-4 8.0 Not Available [facility] (Lab) [address], [place], [address], 03/19/2021 04:16:37 03/18/20 21 03/18/2021 CBC W/DIF F monocytes 8.0 % 4.0-14 .0 Not Available [facility] (Lab) [address], [place], [address], 03/19/2021 04:16:37 03/18/20 21 03/18/2021 CBC W/DIF F eosinophils 1.0 % 0.0-9. 0 Not Available [facility] (Lab) [address], [place], [address], 03/19/2021 04:16:37 03/18/20 21 03/18/2021 CBC W/DIF F basophils 1.0 % 0.0-2. 0 Not Available [facility] (Lab) [address], [place], [address], 03/19/2021 04:16:37 03/18/20 21 03/18/2021 CBC W/DIF F immature granulocytes 0.0 % no define d refere nce range Not Available [facility] (Lab) [address], [place], [address], 03/19/2021 04:16:37 03/18/20 21 03/18/2021 CBC W/DIF F absolute neutrophils 3.8 10'3/ uL 1.1-6. 0 Not Available [facility] (Lab) [address], [place], [address], 03/19/2021 04:16:37 03/18/20 21 03/18/2021 CBC W/DIF F absolute lymphocytes 2.0 10'3/ uL 0.7-3. 4 Not Available [facility] (Lab) [address], [place], [address], 03/19/2021 04:16:37 03/18/20 21 03/18/2021 CBC W/DIF F absolute monocytes 0.5 10'3/ uL 0.3-1. 0 Not Available [facility] (Lab) [address], [place], [address], 03/19/2021 04:16:37 03/18/20 21 03/18/2021 CBC W/DIF F absolute eosinophils 0.1 10'3/ uL 0.0-0. 6 Not Available [facility] (Lab) [address], [place], [address], 03/19/2021 04:16:37 03/18/20 21 03/18/2021 CBC W/DIF F absolute basophils 0.1 10'3/ uL 0.0-0. 1 Not Available [facility] (Lab) [address], [place], [address], 03/19/2021 04:16:37 03/18/20 21 03/18/2021 CBC W/DIF F absolute immature granulocytes 0.00 10'3/ uL 0.00-0 .10 2020 2:30 AM: P indic ates parti al resul ts on a panel have been relea sed. Addit ional resul ts will follo w. 2020 2:30 AM: This resul t has been final verif ied. No addit ional or lo ed resul ts are expec nahum. Not Available [facility] (Lab) [address], [place], [address], 03/19/2021 04:16:37 03/18/20 21 03/18/2021 LIPID PANEL ,AMA (LDL- CALC) total cholesterol 129 mg/dL 0-199 Not Available [facility] (Lab) [address], [place], [address], 03/19/2021 04:16:38 03/18/20 21 03/18/2021 LIPID PANEL ,AMA (LDL- CALC) triglyceride s 105 mg/dL 0.00-1 50.00 NCEP Refer ence Value s for Trigl yceri meena: Rosa Isela l: <150 mg/dL Borde rline High: 150 - 199 mg/dL High: 200 - 499 mg/dL Very High: >/= 500 mg/dL Not Available [facility] (Lab) [address] [place], [address], 03/19/2021 04:16:38 03/18/2003/18/2021 LIPID PANEL ,AMA (LDL- CALC) HDL cholesterol 66 mg/dL >40 Not Available [facility] (Lab) [address] [place], [address], 03/19/2021 04:16:38 03/18/2003/18/2021 LIPID PANEL ,AMA (LDL- CALC) LDL cholesterol 42 mg/dL 0-99 Cutof f value s recom sophia d by the [employer] Progr am: PAWAN ABLE: Naya stero l <200 mg/dL LDL <100 mg/dL BORDE RLINE : Naya stero l 200-2 39 mg/dL LDL 101-1 59 mg/dL HIGHE R RISK: Naya stero l >240 mg/dL LDL >160 mg/dL , HDL <40 mg/dL Not Available [facility] (Lab) [address] [place], [address], 03/19/2021 04:16:38 03/18/20 21 03/18/2021 LIPID PANEL ,AMA (LDL- CALC) non-HDL cholesterol 63 mg/dL no refere nce range A reaso nable goal for non-H DL naya stero l is one that is 30 mg/dL highe r than the LDL naya stero l goal. Not Available [facility] (Lab) [address], [place], [address], 03/19/2021 04:16:38 03/18/20 21 03/18/2021 LIPID PANEL ,AMA (LDL- CALC) chol/HDL ratio 2.0 . 0.0-5. 0 Not Available [facility] (Lab) [address], [place], [address], 03/19/2021 04:16:38 03/18/20 21 03/18/2021 CMP(C OMPRE HENSI VE METAB OLIC PANEL ) sodium 139 mmol/ L 136-14 5 Not Available [facility] (Lab) [address], [place], [address], 03/19/2021 04:16:38 03/18/20 21 03/18/2021 CMP(C OMPRE HENSI VE METAB OLIC PANEL ) potassium 4.1 mmol/ L 3.5-5. 1 Not Available [facility] (Lab) [address] [place], [address], 03/19/2021 04:16:38 03/18/20 21 03/18/2021 CMP(C OMPRE HENSI VE METAB OLIC PANEL ) chloride 107 mmol/ L 98-107 Not Available [facility] (Lab) [address] [place], [address], 03/19/2021 04:16:38 03/18/20 21 03/18/2021 CMP(C OMPRE HENSI VE METAB OLIC PANEL ) carbon dioxide 25 mmol/ L 21-31 Not Available [facility] (Lab) [address] [place], [address], 03/19/2021 04:16:38 03/18/20 21 03/18/2021 CMP(C OMPRE HENSI VE METAB OLIC PANEL ) anion gap 7 mmol/ L 4-13 Not Available [facility] (Lab) [address], [place], [address], 03/19/2021 04:16:38 03/18/20 21 03/18/2021 CMP(C OMPRE HENSI VE METAB OLIC PANEL ) blood urea nitrogen 13 mg/dL 7-25 Not Available [facility] (Lab) [address], [place], [address], 03/19/2021 04:16:38 03/18/20 21 03/18/2021 CMP(C OMPRE HENSI VE METAB OLIC PANEL ) creatinine 0.58 mg/dL 0.60-1 .30 low Not Available [facility] (Lab) [address], [place], [address], 03/19/2021 04:16:38 03/18/20 21 03/18/2021 CMP(C OMPRE HENSI VE METAB OLIC PANEL ) GFR () 138 mL/mi n/1.7 3_m2 60-300 Not Available [facility] (Lab) [address], [place], [address], 03/19/2021 04:16:38 03/18/20 21 03/18/2021 CMP(C OMPRE HENSI VE METAB OLIC PANEL ) GFR (others) 113 mL/mi n/1.7 3_m2 60-300 Not Available [facility] (Lab) [address], [place], [address], 03/19/2021 04:16:38 03/18/20 21 03/18/2021 CMP(C OMPRE HENSI VE METAB OLIC PANEL ) calcium 9.1 mg/dL 8.6-10 .2 Not Available [facility] (Lab) [address], [place], [address], 03/19/2021 04:16:38 03/18/20 21 03/18/2021 CMP(C OMPRE HENSI VE METAB OLIC PANEL ) glucose 79 mg/dL 70-100 Not Available [facility] (Lab) [address], [place], [address], 03/19/2021 04:16:38 03/18/20 21 03/18/2021 CMP(C OMPRE HENSI VE METAB OLIC PANEL ) protein, total 6.7 g/dL 6.4-8. 3 Not Available [facility] (Lab) [address], [place], [address], 03/19/2021 04:16:38 03/18/20 21 03/18/2021 CMP(C OMPRE HENSI VE METAB OLIC PANEL ) albumin 4.2 g/dL 3.5-5. 0 Not Available [facility] (Lab) [address], [place], [address], 03/19/2021 04:16:38 03/18/20 21 03/18/2021 CMP(C OMPRE HENSI VE METAB OLIC PANEL ) ALT 13 units /L 9-43 Not Available [facility] (Lab) [address], [place], [address], 03/19/2021 04:16:38 03/18/20 21 03/18/2021 CMP(C OMPRE HENSI VE METAB OLIC PANEL ) alkaline phosphatase 56 units /L 34-104 Not Available [facility] (Lab) [address], [place], [address], 03/19/2021 04:16:38 03/18/20 21 03/18/2021 CMP(C OMPRE HENSI VE METAB OLIC PANEL ) AST 15 units /L 13-39 Not Available [facility] (Lab) [address], [place], [address], 03/19/2021 04:16:38 03/18/20 21 03/18/2021 CMP(C OMPRE HENSI VE METAB OLIC PANEL ) bilirubin, total 0.5 mg/dL 0.2-1. 2 GFR([place] f[place] n Ameri can) is repor nahum as 21% great er than GFR(O ther) . The use of race in kidne y funct ion estim ating equat ions is no longe r recom sophia d and may resul t in overe stima tion. In the near futur e an appro ach that disre gards race will be imple mente d. Not Available [facility] (Lab) [address], [place], [address], 03/19/2021 04:16:38 03/18/20 21 03/18/2021 TSH, REFLE X FREE T4 TSH 1.69 uIU/m L 0.30-5 .33 Not Available [facility] (Lab) [address], [place], [address], 03/19/2021 04:16:39 03/18/2003/18/2021 HEMOG LOBIN A1C hemoglobin A1C 5.8 % 0-5.6 high The Ameri can [employer] mo[employer] iatio n recom mends that a prima ry goal of thera py shoul d be a HBA1C of < 7% and that physi cians shoul d reeva luate the treat ment regim en in patie nts with HBA1C value s consi stent ly > 8%. <5.7% Rosa Isela l 5.7 - 6.4% Incre ased risk for diabe moise >=6.5 % Diagn ostic of diabe moise <7.0% Goal of thera py >8.0% Actio n sugge sted Not Available [facility] (Lab) [address], [place], [address], 03/19/2021 04:16:39 03/18/2003/18/2021 VITAM IN D, 25-OH (TOTA L D2/D3 ) vitamin D, 25-hydroxy, total 37.0 NG/mL 30-80 NOTE: Defic iency : <20 ng/mL Insuf ficie ncy: 20-29 ng/mL Optim um Level : 30-80 ng/mL Possi ble Toxic ity: >80 ng/mL Most patie nts with toxic ity have level s >150 ng/mL . Not Available [facility] (Lab) [address], [place], [address], 03/19/2021 04:16:40 03/18/20 21 03/18/2021 FSH / LH FSH 4.5 mIU/m L This assay was perfo rmed using [employer] ratio n reage nts and test kits. Value s obtai karly with other assay metho ds or kits canno t be used inter lo eay . Femal es Folli cular : 3.5-1 2.5 mIU/m L Ovula tion: 4.7-2 1.5 mIU/m L Lutea l: 1.7-7 .7 mIU/m L Postm enopa use: 25.8- 134.8 mIU/m L Not Available [facility] (Lab) [address], [place], [address], 03/19/2021 04:16:40 03/18/20 21 03/18/2021 FSH / LH LH 2.0 mIU/m L This assay was perfo rmed using [employer] reage nts and test kits. Value s obtai karly with other assay metho ds or kits canno t be used inter [facility] . Femal es Mid-F ollic ular: 2.4-1 2.6 mIU/m L Mid-C ycle: 14.0- 95.6 mIU/m L Mid-L uteal : 1.0-1 1.4 mIU/m L Postm enopa use: 7.7-5 8.5 mIU/m L Not Available [facility] (Lab) [address] [place], [address], 03/19/2021 04:16:40 03/18/20 21 03/18/2021 VAGIN ITIS/ VAGIN OSIS, DNA PROBE carlos alberto sp. detection, direct probe Negati ve negati ve Not Available [facility] (Lab) [address], [place], [address], 03/20/2021 19:54:34 03/18/20 21 03/18/2021 VAGIN ITIS/ VAGIN OSIS, DNA PROBE gardnerella vag. detection, direct probe Negati ve negati ve Not Available [facility] (Lab) [address] [place], [address], 03/20/2021 19:54:34 03/18/20 21 03/18/2021 VAGIN ITIS/ VAGIN OSIS, DNA PROBE trichomonas vag. 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 Order ing Locat ion: [place] Path[facility] Recei rebeka: 03/19 0106 First Scree n: Filipe Mathews , CT Speci men: Scree aruna Pap - Image d, Cervi x STATE MENT OF ADEQU ACY: Satis facto ry for evalu ation Trans forma tion zone compo nent prese nt FINAL DIAGN OSIS: Negat adilson for Intra epith elial Rolf davis or Isaiah viera (NIL) Elect dionne allen ramana d by Filipe Mathews CT on 2020 at 6:52 PM ----- ----- ----- ----- ----- ----- ----- ----- ----- ----- ----- ----- ----- ----- ----- ----- ----- ---- HPV RESUL TS: HPV mRNA E6/E7 : No HPV mRNA Detec nahum NOTE: This high risk HPV mRNA assay detec ts fourt een high- risk HPV types (16, 18, 31, 33, 35, 39, 45, 51, 52, 56, 58, 59, 66, 68) witho ut diffe renti ation . COMME NT: Note: This speci men was revie wed by a Cytot echno logis t and/o r Patho logis t (as indic ated in this repor t) after evalu ation using the Thinp rep Imagi ng Syste m. CLINI [facility] INFOR MATIO N: Menst rual Statu s: LMP (if appli cable ): 2020 Clini tomás Histo ry/Pr eviou s Pap: Type of Neopl trent (if appli cable ): Signi fican t Clini tomás Findi ngs: Other Histo ry: Hormo gomez (if appli cable ): PAP EDUCA JONES L NOTE: The Pap Test is a scree aruna test with an inher ent false negat adilson rate. Liqui d-bas e sampl ing may decre ase, but will not elimi jeyson, false negat adilson resul ts. A negat adilson resul t does not precl ude the prese nce and/o r devel opmen t of disea se, since the prese nce of abnor mal cells in the sampl e depen ds on the locat ion of the lesio n and sampl ing techn ique. Soledad nued regul ar scree aruna is the best metho d of cance r preve ntion . If repor nahum cytol ogic findi ng do not corre late with physi tomás and/o r histo rical findi ngs, furth er inves tigat ion is recom sophia d, as clini twila diaz nted. Not Available [facility] (Lab) [address], [place], [address], 03/20/2021 19:54:35 03/24/20 22 03/24/2022 PROLA CTIN prolactin, total 9.01 NG/mL 4.79-2 3.30 This assay was perfo rmed using [employer] ratio n reage nts and test kits. Value s obtai karly with other assay metho ds or kits canno t be used inter lo eably . Not Available [facility] [address], [place], [address], 03/25/2022 06:32:24 03/24/20 22 03/24/2022 TSH, REFLE X FREE T4 TSH 1.61 uIU/m L 0.30-5 .33 Not Available [facility] 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 Elect dionne boles d by Segundo Perrin, CT on 2021 at 6:03 PM ----- ----- ----- ----- ----- ----- ----- ----- ----- ----- ----- ----- ----- ----- ----- ----- ----- ---- HPV RESUL TS: HPV mRNA E6/E7 : No HPV mRNA Detec nahum NOTE: This high risk HPV mRNA assay detec ts fourt een high- risk HPV types (16, 18, 31, 33, 35, 39, 45, 51, 52, 56, 58, 59, 66, 68) witho ut diffe renti ation . COMME NT: Note: This speci men was revie wed by a Cytot echno logis t and/o r Patho logis t (as indic ated in this repor t) after evalu ation using the Thinp rep Imagi ng Syste m. CLINI [facility] INFOR MATIO N: Menst rual Statu s: LMP (if appli cable ): Clini tomás Histo ry/Pr eviou s Pap: Type of Neopl trent (if appli cable ): Signi fican t Clini tomás Findi ngs: Other Histo ry: Hormo gomez (if appli cable ): PAP EDUCA JONES L NOTE: The Pap Test is a scree aruna test with an inher ent false negat adilson rate. Liqui d-bas ed sampl ing may decre ase, but will not elimi jeyson, false negat adilson resul ts. A negat adilson resul t does not precl ude the prese nce and/o r devel opmen t of disea se, since the prese nce of abnor mal cells in the sampl e depen ds on the locat ion of the lesio n and sampl ing techn ique. Soledad nued regul ar scree aruna is the best metho d of cance r preve ntion . If repor nahum cytol ogic findi ng do not corre late with physi tomás and/o r histo rical findi ngs, furth er inves tigat ion is recom sophia d, as clini twila diaz nted. Not Available [facility] [address] [place], [address], 04/07/2022 19:07:13 05/23/20 24 05/23/2024 IMAGE GUIDE D PAP AND HPV REGAR DLESS image guided Pap, HPV regardless of Pap result SEE RESULT S BELOW CASE REPOR T: Cytol ogy Gynec ologi tomás Repor t Case: [id number] Autho henri radha Provi adamaris: Dermo dy, [place] , ANP, OCC THERAPY ASST Colle cted: 05/23 1445 Order ing Locat ion: [place] Patho [place] Recei rebeka: 05/24 0924 First Scree n: Rodriguez Lacey, CT Speci men: Ritchie valdovinos Pap - Image d, Cervi x STATE MENT OF ADEQU ACY: Satis facto ry for evalu ation Trans forma tion zone compo nent prese nt ----- ----- ----- ----- ----- ----- ----- ----- ----- ----- ----- ----- ----- ----- ----- ----- ----- ---- FINAL DIAGN OSIS: Negat adilson for Intra epith elial Lesnoah davis or Isaiah viera (NIL) . Elect dionne allen ramana d by Rodriguez Lacey, CT on 05/31 at 3:12 PM ----- ----- ----- ----- ----- ----- ----- ----- ----- ----- ----- ----- ----- ----- ----- ----- ----- ---- HPV RESUL TS: HPV mRNA E6/E7 : No HPV mRNA Detec nahum NOTE: This high risk HPV mRNA assay detec ts fourt een high- risk HPV types (16, 18, 31, 33, 35, 39, 45, 51, 52, 56, 58, 59, 66, 68) witho ut diffe renti ation . COMME NT: This speci men was revie wed by a Cytot echno logis t and/o r Patho logis t (as indic ated in this repor t) after evalu ation using the Thinp rep Imagi ng Syste m. [facility] INFOR MATIO N: Menst rual Statu s: LMP (if appli cable ): Clini tomás Histo ry/Pr eviou s Pap: Type of Neopl trent (if appli cable ): Signi fican t Clini tomás Findi ngs: Other Histo ry: Hormo gomez (if appli cable ): PAP EDUCA JONES L NOTE: The Pap Test is a scree aruna test with an inher ent false negat adilson rate. Liqui d-bas ed sampl ing may decre ase, but will not elimi jeyson, false negat adilson resul ts. A negat adilson resul t does not precl ude the prese nce and/o r devel opmen t of disea se, since the prese nce of abnor mal cells in the sampl e depen ds on the locat ion of the lesio n and sampl ing techn ique. Soledad nued regul ar scree aruna is the best metho d of cance r preve ntion . If repor nahum cytol ogic findi ng do not corre late with physi tomás and/o r histo rical findi ngs, furth er inves tigat ion is recom sophia d, as clini twila warra nted. Not Available [facility] (Lab) [address], [place], [address], 05/31/2024 16:17:51 04/07/20 22 04/04/2022 MAMMO , diagn ostic , digit al, bilat eral No observ ation record ed. [address], [place], [address], 04/08/2022 14:59:23 Result Notes None recorded. Problems Name Problem SNOMED Code Status Onset Date Resolution Date Notes Provider Name and Address Organization Details Recorded Time Educatio n Completed 201603/18/2021 Encounte r for other general counseli ng and advice on contrace ption;Re corded Elsewher e: No Locat ion: [facility] S ource: EHR Oil Pumper des: N Practi ce ID: 0001 Martín lable Time: 10:00:00 AM Vandana Kern [facility] 1 10:33:22 Normal pregnanc y in multigra katina [id number] Completed 201603/18/2021 Encounte r for supervis ion of other normal pregnanc y, first trimeste r;Record ed Elsewher e: No [facility] Oil Pumper des: N Cara ce ID: 0001 Martín lable Time: 03:15:00 PM Vandana Kern [facility] 1 10:33:37 Screenin g for malignan t neoplasm of rectum Completed 201603/18/2021 Encounte r for screenin g for malignan t neoplasm of rectum;R ecorded Elsewher e: No Locat ion: [facility] S ource: EHR Oil Pumper des: N Cara ce ID: 0001 Martín lable Time: 01:00:00 PM Vandana Kern [facility] 1 10:33:50 Finding of pattern of menstrua l cycle Completed 201803/18/2021 Other specifie d irregula r menstrua tion;Rec orded Elsewher e: No Locat ion: [facility] S ource: EHR Oil Pumper des: N Cara ce ID: 0001 Martín lable Time: 02:15:00 PM Vandana Kern [facility] 1 10:33:25 anatomy study Completed 201203/18/2021 [facility] SURVEY;R ecorded Elsewher e: No Locat ion: [facility] S ource: EHR Oil Pumper des: N Terrellti ce ID: 0001 Martín lable Time: 11:00:00 AM Vandana Kern [facility] 1 10:33:24 Pregnanc y test positive [id number] Completed 201103/18/2021 Pregnanc y examinat ion or test, positive result;R ecorded Elsewher e: No Locat ion: [facility] venancio [facility] S ource: EHR Oil Pumper des: N Practi ce ID: 0001 Martín lable Time: 03:30:00 PM Vandana Kern [facility] 1 10:33:45 Uterine size for dates discrepa ncy [id number] Completed 201103/18/2021 UTERINE SIZE MEENA-ANTE PAR;Ignacio rded Elsewher e: No Locat ion: [facility] S ource: EHR Oil Pumper des: N Practi ce ID: 0001 Martín lable Time: 02:00:00 PM Vandana Kern [facility] 1 10:34:[address] Concept Completed 201503/18/2021 Encntr for general adult medical exam w/o abnormal findings ;Recorde d Elsewher e: No Locat ion: [facility] S ource: EHR Oil Pumper des: N Terrellti ce ID: 0001 Martín lable Time: 10:30:00 AM Vandana Kern [facility] 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 1 10:34:00 Amenorrh ea [id number] Completed 201103/18/2021 Absence of menstrua tion;Rec orded Elsewher e: No Locat ion: [facility] S ource: EHR Oil Pumper des: N Practi ce ID: 0001 Martín lable Time: 03:30:00 PM Vandana Kern [facility] 1 10:33:15 Screenin g for malignan t neoplasm of cervix Completed 201103/18/2021 Screenin g for malignan t neoplasm s of the cervix;R ecorded Elsewher e: No [facility] S ource: EHR Oil Pumper des: N Practi ce ID: 0001 Martín lable Time: 03:30:00 PM Vandana Kern [facility] 1 10:33:48 Secondar y amenorrh ea [id number] Completed 201603/18/2021 Secondar y amenorrh ea;Recor ded Elsewher e: No Locat ion: [facility] S ource: EHR Oil Pumper des: N Practi ce ID: 0001 Martín lable Time: 02:15:00 PM Vandana Kern [facility] 10:33:51 Gestatio n less than 9 weeks [id number] Completed 201603/18/2021 Less than 8 weeks gestatio n of pregnanc y;Record ed Elsewher e: No Locat ion: [facility] S ource: EHR Oil Pumper des: N Practi ce ID: 0001 Martín lable Time: 10:00:00 AM Vandana Kern [facility] 10:33:27 Insertio n of intraute rine contrace ptive device Completed 201603/18/2021 Encounte r for insertio n of intraute rine contrace ptive device;R ecorded Elsewher e: No Locat ion: [facility] S ource: EHR Oil Pumper des: N Practi ce ID: 0001 Martín lable Time: 01:45:00 PM Vandana Kern [facility] 10:33:[address] Concept Completed 201503/18/2021 Encntr for watch dial maker exam (general ) (routine ) w/o abn findings ;Recorde d Elsewher e: No Locat ion: [facility] S ource: EHR Oil Pumper des: N Practi ce ID: 0001 Martín lable Time: 10:30:00 AM Vandana Kern [facility] 10:33:58 Contrace ptive sheath status [id number] Completed 201703/18/2021 IUD follow up;Recor ded Elsewher e: No Locat ion: [facility] S ource: EHR Oil Pumper des: Venus Marroquin ce ID: 0001 Martín lable Time: 04:45:00 PM Vandana Kern [facility] 10:33:19 Pregnanc y detectio n examinat ion Completed 201603/18/2021 Encounte r for pregnanc y test, result positive ;Recorde d Elsewher e: No Locat ion: [facility] S ource: EHR Oil Pumper des: Venus Marroquin ce ID: 0001 Martín lable Time: 02:15:00 PM Vandana Kern [facility] 10:33:42 Atypical squamous cells of undeterm ined signific ance on cervical Papanico laou smear [id number] Completed 201803/18/2021 Atyp squam cell of undet signfc cyto smr crvx (ASC-US) ;Recorde d Elsewher e: No Locat ion: [facility] S ource: EHR Oil Pumper des: Venus Marroquin ce ID: 0001 Martín lable Time: 10:00:00 AM Vandana Kern [facility] 10:33:17 Pregnanc y test negative [id number] Completed 201803/18/2021 Encounte r for pregnanc y test, result negative ;Recorde d Elsewher e: No Locat ion: [facility] S ource: EHR Oil Pumper des: Venus Marroquin ce ID: 0001 Martín lable Time: 01:00:00 PM Vandana Kern [facility] 10:33:43 Sexual function painful Completed 201703/18/2021 dyspareu shahnaz;Ignacio rded Elsewher e: No Locat ion: [facility]amm[facility] venancio [facility] S ource: EHR Oil Pumper des: N Practi ce ID: 0001 Martín lable Time: 02:30:00 PM Vandana Kern [facility] 10:33:53 Lochia finding Completed 201603/18/2021 Encounte r for routine postpart um follow-u p;Record ed Elsewher e: No Locat ion: [facility] S ource: EHR Oil Pumper des: N Practi ce ID: 0001 Martín lable Time: 10:00:00 AM Vandana Kern [facility] 10:33:35 Hemorrha gic complica tion of pregnanc y [id number] Completed 201603/18/2021 Other hemorrha ge in early pregnanc y;Record ed Elsewher e: No Locat ion: Tammysonya craft [facility] S ource: EHR Oil Pumper des: N Practi ce ID: 0001 Martín lable Time: 10:00:00 AM Vandana Kern [facility] 10:33:31 Routine antenata l care Completed 201103/18/2021 Supervis ion of other normal pregnanc y;Record ed Elsewher e: No Locat ion: [facility] S ource: EHR Oil Pumper des: N Practi ce ID: 0001 Martín lable Time: 03:30:00 PM Vandana romo [facility] 10:33:46 Delivery normal [id number] Completed 201203/18/2021 Normal delivery ;Practic e ID: 0001 Vandana Kern [facility] 10:33:20 Single live [id number] Completed 201203/18/2021 Mother with single liveborn ;Practic e ID: 0001 Vandana Kern [facility] 09/13/202 1 10:33:55 Postpart um care Completed 201203/18/2021 Postpart um care and examinat ion immediat mikaela after delivery ;Practic e ID: 0001 Vandana Kern [facility] 10:33:38 Precipit ate labor [id number] Completed 201603/18/2021 Precipit ate labor;Pr actice ID: 0001 Vandana Kern [facility] 10:33:40 Gestatio n period, 39 weeks [id number] Completed 201603/18/2021 39 weeks gestatio n of pregnanc y;Practi ce ID: 0001 Vandana Kern [facility] 10:33:29 Problem Notes None recorded. Procedures Surgical History Date Name Laterality Status Provider Name and Address Organization Details Recorded Time 2 Date of Last Mammogram completed [facility] 05/19/2024 16:44:58 2 Date of Last Pap Smear completed [facility] 05/19/2024 16:44:55 Imaging Results Imaging Date Name Status LastModified by Organiz ation Details LastModified Time 04/04/2022 MAMMO, diagnostic, digital, bilateral completed [facility] [address], [place], [address], 04/08/2022 14:59:23 Procedure Notes None recorded. Medical Equipment None Reported. Allergies No known drug allergies Medications Name Sig Start Date Stop Date Status Note LastModified by Organization Details LastModified Time Mirena 21 mcg/24 hr (up to 8 years) 52 mg intrauter ine device 2016 active Prescrib ed Elsewher e: Yes Loca tion: [facility] M odify By: [email or web address] Craft ncounter DateTime : 06/26/20 17 01:45:00 PM Not Available Not Available Not Available azithromy brent 250 mg tablet TAKE 2 TABLETS BY MOUTH ON DAY 1, AND THEN TAKE 1 TABLET BY MOUTH ONCE A DAY ON DAY 2 THROUGH DAY 5 active Not Available Not Available No t Available benzonata te 200 mg capsule TAKE 1 CAPSULE BY MOUTH THREE TIMES DAILY NEEDED active Not Available Not Available No t Available metronida zole 0.75 % (37.5 mg/5 gram) vaginal gel Insert 1 applicat orful every day by vaginal route for 5 days. 2023 active Not Available Not Available Not Avai lable prednisol one acetate 1 % eye drops,alan pension 03/24 completed Not Available Not Available Not Available triamcino lone acetonide 0.1 % topical ointment APPLY A THIN LAYER TO THE AFFECTED AREA(S) BY TOPICAL ROUTE 2 TIMES PER DAY PRN active Not Available Not Available No t Available hydrocort isone 2.5 % topical cream 05/23 completed Not Available Not Available Not Available methylpre dnisolone 4 mg tablets in a dose pack TAKE BY MOUTH DIRECTED ON INSIDE OF PACKAGE active Not Available Not Available No t Available hydrocodo ne 10 mg-chlorp heniramin e 8 mg/5 mL oral susp extend.re l 12hr TAKE 2 & 1/2 (TWO & ONE-HALF ) ML BY MOUTH EVERY 12 HOURS NEEDED FOR COUGH active Not Available Not Available No t Available Vitamin D2 1,250 mcg (50,000 unit) capsule take 1 capsule (13670ZM ITS) by oral route every week 02/28 completed Prescrib ed Elsewher e: No [facility] By: modesta ferreira DateTime : 07/26/19 13 02:27:10 PM Not Available Not Available Not Available Triveen-D uo DHA 29 mg-1 mg-400 mg oral pack take 1 by Oral route once for 30 days 11/25 completed Prescrib ed Elsewher e: No [facility]at ion[facility] odify By: cierra alvarenga DateTime : 10/28/19 19 03:34:00 PM Not Available Not Available Not Available BinaxNOW COVID-19 Ag Self Test kit 03/24 completed Not Available Not Available Not Available Vitals Date Recorded Body height Body mass index (BMI) Body weight Systolic blood pressure Diastolic blood pressure Provider Name and Address Organization Details Last Updated DateTime 03/18/2021 160.02 cm 18.6 kg/m2 61294.2 g 102 mm[Hg] 64 mm[Hg] [facility] 1 11:51:50 Date Recorded Body height Body mass index (BMI) Body weight Systolic blood pressure Diastolic blood pressure Provider Name and Address Organization Details Last Updated DateTime 03/24/2022 160.02 cm 18.5 kg/m2 71961.76 g 105 mm[Hg] 68 mm[Hg] Malinda Atkinson [facility] 2 11:21:28 Date Recorded Body height Body mass index (BMI) Body weight Systolic blood pressure Diastolic blood pressure Provider Name and Address Organization Details Last Updated DateTime 04/01/2022 160.66 cm 18.5 kg/m2 47684.2 g 128 mm[Hg] 76 mm[Hg] [facility] 2 10:41:41 Date Recorded Body height Body mass index (BMI) Body weight Systolic blood pressure Diastolic blood pressure Provider Name and Address Organization Details Last Updated DateTime 05/23/2024 160.66 cm 19 kg/m2 38220.98 g 107 mm[Hg] 65 mm[Hg] Keyana Hinkle [facility] 4 15:09:56 Social History Question Answer Notes LastModified by Organizat ion Details LastModified Time Do You Have An Advance Directive? No Information n ot available 03/18/2021 What Is Your Level Of Alcohol Consumption? Occasional Information not available 03/18/2021 Are You Blind Or Do You Have Difficulty Seeing? No Information n ot available 03/18/2021 What Is Your Level Of Caffeine Consumption? Moderate Information not available 03/18/2021 How Much Tobacco Do You Chew? None Information not available 03/18/2021 In The 14 Days Before Symptom Onset, Have You Had Close Contact With A Laboratory-confirm ed COVID-19 While That Case Was Ill? Yes hever Information n ot available 03/24/2022 In The 14 Days Before Symptom Onset, Have You Had Close Contact With A Person Who Is Under Investigation For COVID-19 While That Person Was Ill? Yes Information not available 04/01/2022 Have You Been To An Area Known To Be High Risk For COVID-19? No Information not available 03/18/2021 Are You Deaf Or Do You Have Serious Difficulty Hearing? No Information not available 03/18/2021 What Type Of Diet Are You Following? REGULAR Information n ot available 03/18/2021 What Is The Highest Grade Or Level Of School You Have Completed Or The Highest Degree You Have Received? 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 No Information not available 03/18/2021 Do You Use Protection During Sex? No Information not available 03/18/2021 Do You Use Your Seat Belt Or Car Seat Routinely? Yes Information not available 03/18/2021 Do You Have Smoke And Carbon Monoxide Detectors In Your Home? Yes Information not available 03/18/2021 How Much Tobacco Do You Smoke? No Information not available 03/18/2021 Do You Feel Stressed (tense, Restless, Nervous, Or Anxious, Or Unable To Sleep At Night)? [id number] Information not available 04/01/2022 Do You Use Any Illicit Or Recreational Drugs? No Information not available 03/18/2021 Do You Use Sunscreen Routinely? Yes Information not available 03/18/2021 Have You Used IV Drugs? No Information not available 03/18/2021 Sex: Unknown Functional Status Question Answer Note LastModified by Organizat ion Details LastModified Time Do you have difficulty walking or climbing stairs? No Information not available 04/01/2022 Are you able to walk? YESWOREST Information not available 03/18/2021 Are you able to care for yourself? Yes Information not available 04/01/2022 Do you have difficulty dressing or bathing? No Information not available 04/01/2022 What is your exercise level? Occasional Information not available 03/18/2021 Mental Status None recorded. Family History Relationship Description Onset Age of this Age Resolved Age Notes LastModified by Organization Details LastModified Time Maternal Grandfather Malignant tumor of lung Not available 2020 10:36:12 Mother Osteoporosis [email or web address] Not avai lable 05/23/2024 15:06:33 Sister Osteoporosis 47 Not avai lable 05/23/2024 15:06:33 Medical History Condition Response Allergies (Food, seasonal, environmental ) N Other N Breast Cancer N Drug/Latex Allergies/Reactions N Blood Transfusion N Lung Disease N Dermatologic Disorders N Defects or Inherited Disease N Breast Problem N Gestational Diabetes N Hematologic disorders N Anesthesia Complications N History of STI N Deep Vein Thrombosis N Polycystic ovary syndrome N Anxiety Disorder N Autoimmune disease N Arthritis N Infertility N Polyps N Acid Reflux (GERD) N History of abnormal pap N Cancer N Stroke N Varicosities N Neurologic/Epilepsy N Endometriosis N High Cholesterol N Headaches N Fibromyalgia N Kidney Disease N Heart Problems N Kidney or Bladder Problems N Thyroid Problems N GI Problems N Eating Disorder N Anemia N Art (IVF or FET) N Psychiatric Illness N Ovarian Cancer N Diabetes N Pulmonary (TB, Asthma) N Hepatitis/Liver Disease N No Past Medical History Y Eczema N Urinary Tract Infection N Abuse/Domestic Violence N Asthma N Trauma/Violence N Depression/ depression N Heart Disease N Pre-Eclampsia N Hypertension N Osteoporosis N Thrombophilias N Gynecological History Statement/Question Response Date of Last Mammogram 04/04/2022 Flow Light Date of LMP 03/09/2022 N Was last menstrual period normal Y STIs/STDs N Date of control 06/19/2017 IUD Desired Control Method None On BCP's at Conception? N HPV Vaccine N Duration of Flow (days) 4 Current Control Method IUD Age at First Child 34 Are cycles usually normal Y Frequency of Cycle (Q days) 28 Sexually Active? Y Menses Monthly N Age of first menstrual cycle 14 Date of Last Pap Smear 04/01/2022 Sexual Problems? N LMP Approximate N Obstetrics History GPAL:G 3 P 0 0 0 3 Type Value Living 3 Total 3 Past Encounters Encounter ID Performer Location Encounter Start Date Encounter Closed Date Diagnosis/Indication Diagnosis SNOMED-CT Code Diagnosis ICD10 Code Diagnosis Note [id number] Dory Womack , [facility] [address],[facility] [place] [address] 03/18/2021 11:25:15 03/18/2021 12:37:18 Gynecologic examination 62649509 Z01.419 Suggested Calcium with Vitamin D 1200-1500m g daily. Patient advised to get an annual flu shot in the fall and she could obtain at [facility] or [facility] clinic. Also to obtain TDap vaccinatio n if you have not had one in the last 10 years. Recommend yearly mammograms . Encouraged monthly self breast exams. Encourage safe sexual practices, to use condoms and limit partners if not already in a monogamous relationsh ip. Engage in daily exercise of low impact aerobic exercise 45-60 minutes 4-5 times weekly. Avoid tobacco and illicit drugs as well as using moderation with alcohol intake less than 1-2 8 oz beverages daily. This lifestyle behavior pattern will lead to less health conditions and longer life span. If BMI greater than 25 weight watchers or dietary consult advised. All questions have been answered. Patient appears to understand informatio n, but if you have any questions please call or respond to this email. STD declinedPa p/hpv sentIUD in place. Vaginitis 35971032 N76.0 Metrogel Hubert call with results. Adult heal th examination 171267786 Z00.00 N95.1 [id number] Liz Manriquez [facility] [address] [address] 03/24/2022 11:12:51 03/24/2022 12:14:22 Breast lump 35358580 N63.0 We agreed to diagnostic mammogram and breast u/s for further evaluation of bilateral breast lumpsThis will be her first mammogramW ill obtain prolactin for further evaluation of nipple dischargeW ill refer to breast specialist if needed, [facility] Time spent in visit is a total of 15 mins with at least 50% of visit consisting of counseling and review of plan of care. Discharge from nipple 54 321203 N64.52 [id number] Dory Womack [facility] [address] [address] 04/01/2022 10:27:34 04/01/2022 11:06:03 Gynecologic examination 92205231 Z01.419 Z11.51 Suggested Calcium with Vitamin D 1200-1500m g daily. Patient advised to get an annual flu shot in the fall and she could obtain at [facility] or [facility] clinic. Also to obtain TDap vaccinatio n if you have not had one in the last 10 years. Recommend yearly mammograms . Encouraged monthly self breast exams. Encourage safe sexual practices, to use condoms and limit partners if not already in a monogamous relationsh ip. Engage in daily exercise of low impact aerobic exercise 45-60 minutes 4-5 times weekly. Avoid tobacco and illicit drugs as well as using moderation with alcohol intake less than 1-2 8 oz beverages daily. This lifestyle behavior pattern will lead to less health conditions and longer life span. If BMI greater than 25 weight watchers or dietary consult advised. All questions have been answered. Patient appears to understand informatio n, but if you have any questions please call or respond to this email. Pap/hpv sentSTD Screen declinedGe netic Screen discussed & brochure givenColon Screen naDexa Screen naRoutine Labs PCPMammo ordered (has imaging scheduled from breast check last week).A Mirena IUD prevents for up to 7-8 years, and also helps with heavy periods for up to 5 years in women who choose an IUD for control. Vaginitis [id number] N76.0 Metrogel sentWill call with results. [id number] EVERTON HERNANDEZ NP [place] [address] [address] 05/23/2024 14:58:17 05/23/2024 15:43:47 Gynecologic examination 58497006 Z01.419 Annual gynecologi tomás exam performed. Patient will come back in a year unless there are new symptoms. Suggest Calcium with Vitamin D if not eating in diet. Patient advised to get annual flu shot. Recommend yearly physicals and perform monthly breast exams. Genetic testing is available for patients with family history of cancer. Engage in safe sexual practices, use condoms. Encouraged to have daily exercise. Avoid tobacco and illicit drugs, moderation of alcohol. If BMI greater than 25 dietary consult advised. If you have any questions please call or email. mammogram- DUE - order given, pt to schedule colon cancer screening - DUE; GI referral to [facility] DEXA scan- n/a Pap smear- pap w/ HPV collected laboratory evaluation - PCP STI testing - declined Screening mammography 24 820155 Z12.31 Contracept ion care management 361581716 Z30.9 Patient happy with Mirena IUD.String s intact and visible.Di scussed that Mirena IUD is effective for 8 years.Johana na expires in 06/2025 per pt. Pt to RTO for removal and replacemen t. Vaginitis 20003685 N76.0 Discussed empirical treatment with metronidaz ole for suspected BV based on reported symptoms and physical exam findings. Pt prefers metrogel as opposed to oral pills.Disc ussed vulvar care guidelines in addition to laundry/sk in irritants to avoid.Rx for triamcinol one ointment for external vulvar irritation - pt to apply thin layer to affected areas BID as needed. Screening colonoscopy 44 0571606 Z12.11 GI referral for colonoscop y Health Concerns Section Related Observation LastModified by Organization Detai ls LastModified Time None Recorded Concern Status LastModified by Organization Details LastModified Time None Recorded Advance Directives Directive N: Payers Encounter Date Sequence Insurance Name Policy Number Policy Best Covered Member ID Best Member ID Guarantor Name 03/18/2021 1 [facility] [id number] Kirk Ring [id number] Trudy Y Ring 03/24/2022 1 [facility] [id number] Kirk Ring [id number] Trudy Y Ring 04/01/2022 1 [facility] [id number] Kirk Ring [id number] Trudy Y Ring 05/23/2024 1 [facility] [id number] Kirk Ring [id number] Trudy Y Ring Notes Date Note Type Note Provider Name and Address Organization Details Recorded Time 03/18/2021 text/html Annual GYNReport ed bypatient.Menstrual cycle:Normal menses (Amenorrheic on IUD) Urinary symptoms:No hematuria; No incontinence Vulva:No genital lesion Vagina:Foul-smelling ;Yellow-green, thick Breast:No breast pain; No breast lump; No nipple discharge Current Contraception:Satisf ied with current contraception; Monogamous relationship; Intrauterine device (iud) Sexual complaints:No sexual complaints; No pain during intercourse; Normal libido Menopausal Symptoms:No menopausal symptoms; Normal vaginal lubrication Psychological symptoms:No depression; No anxiety; No PMDD Preventive measures:Encourage self breast examination; Encourage regular exercise; Encourage no tobacco use; Encourage regular mammograms starting age 40; Followed with Q3 year pap smear and high risk HPV typing; Needs to schedule mammogram [facility] W[facility] [address], [place], [address], [facility] 03/18/2021 12:13:29 03/24/2022 text/html 46yo presents fo r evaluation of bilateral breast lumps. Noticed the lumps 2-3 months ago. They are non-tender. She has been having some milky discharge on and off. She last breastfed 2.5 years ago.She has never had a mammogramMirena IUD for BCShe denies any medical problems currently SUSY Mohr [address], [place], [address], [facility] 03/24/2022 11:40:07 04/01/2022 text/html Annual GYNReport ed bypatient.Menstrual cycle:Normal menses Urinary symptoms:No hematuria; No incontinence Vulva:No genital lesion Vagina:Foul-smelling ;Yellow-green, thick Breast:No breast pain; No breast lump; No nipple discharge Current Contraception:Satisf ied with current contraception; Intrauterine device (iud) Sexual complaints:No sexual complaints; No pain during intercourse; Normal libido Menopausal Symptoms:No menopausal symptoms; Normal vaginal lubrication Psychological symptoms:No depression; No anxiety; No PMDD Preventive measures:Encourage self breast examination; Encourage regular exercise; Encourage no tobacco use; Encourage regular mammograms starting age 40; Followed with yearly pap smears; Needs to schedule mammogram [address], [place], [address], [facility] 04/01/2022 11:04:46 05/23/2024 text/html Annual GYNReport ed bypatient.History:no gynecologic complaints Menstrual cycle:Irregular cycle intervals(IUD) Urinary symptoms:No hematuria; No incontinence Vulva:No genital lesion Vagina:Normal vaginal discharge Breast:No breast pain; No breast lump; No nipple discharge Current Contraception:Satisf ied with current contraception; Intrauterine device (iud) Sexual complaints:No sexual complaints; No pain during intercourse; Normal libido Menopausal Symptoms:No menopausal symptoms; Normal vaginal lubrication Psychological symptoms:No depression; No anxiety; No PMDD Preventive measures:Encourage self breast examination; Encourage regular exercise; Encourage no tobacco use; Encourage regular mammograms starting age 40; Needs to schedule mammogram; Needs to schedule colonoscopy Patient presents for annual well woman exam. Patient reports vulvar irritation and thin vaginal discharge intermittently over past month. Patient has history of BV infections in the past. EVERTON HERNANDEZ NP [address], [place], [address], [facility] 05/23/2024 15:43:29 OBGyn Episode Ob Episode Information Episode Created Date Number of Fetuses Patient Bloodtype Patient rh Status Prepregnancy Weight lbs Domestic Partner Domestic Partner Phone Father Name Hse Manager Status 03/18/20 21 1 CLOSED Fetus Data First Name Last Name Admitted to NICU Weight (g) Sex Living Outcome Pediatric Complications Fetus ID Race Codes Race Delivery Type [id number] Vaginal Delivery Sean Calculation Initial Sean Date Initial Exam Date Initial Exam Provider Initial Ultrasound Date Last Menstrual Period Date Ultra Sound Weeks Gestation 0 Eighteen To Twenty Week Sean Update Ultra Sound Date Fundal Height At Umbil Quickening Date Ultra Sound Latest Weeks Gestation Final Sean Confirmed By Final Sean Confirmed Date Final Sean Date Ultra Sound Latest Days Gestation 0 0 Menstrual History Last Menstrual Date Menses Monthly On Bcp Conception Prior Menses Frequency Hcg Plus Date Menarche Onset Age Delivery Information Delivery Date Delivery Type Labor Anesthesia Weeks Gestation Incision Type Labor Labor Length Hrs Delivered By Post Complications Tubal Sterilization Discharge Date Comments 3 Discharge Information Feeding Method Contraceptive Method Maternal HG B and HCT Levels Ob Episode Information Episode Created Date Number of Fetuses Patient Bloodtype Patient rh Status Prepregnancy Weight lbs Domestic Partner Domestic Partner Phone Father Name Hse Manager Status 03/18/20 21 1 CLOSED Fetus Data First Name Last Name Admitted to NICU Weight (g) Sex Living Outcome Pediatric Complications Fetus ID Race Codes Race Delivery Type [id number] Vaginal Delivery Sean Calculation Initial Sean Date Initial Exam Date Initial Exam Provider Initial Ultrasound Date Last Menstrual Period Date Ultra Sound Weeks Gestation 0 Eighteen To Twenty Week Sean Update Ultra Sound Date Fundal Height At Umbil Quickening Date Ultra Sound Latest Weeks Gestation Final Sean Confirmed By Final Sean Confirmed Date Final Sean Date Ultra Sound Latest Days Gestation 0 0 Menstrual History Last Menstrual Date Menses Monthly On Bcp Conception Prior Menses Frequency Hcg Plus Date Menarche Onset Age Delivery Information Delivery Date Delivery Type Labor Anesthesia Weeks Gestation Incision Type Labor Labor Length Hrs Delivered By Post Complications Tubal Sterilization Discharge Date Comments 0 Discharge Information Feeding Method Contraceptive Method Maternal HG B and HCT Levels Ob Episode Information Episode Created Date Number of Fetuses Patient Bloodtype Patient rh Status Prepregnancy Weight lbs Domestic Partner Domestic Partner Phone Father Name Hse Manager Status 03/18/20 21 1 CLOSED Fetus Data First Name Last Name Admitted to NICU Weight (g) Sex Living Outcome Pediatric Complications Fetus ID Race Codes Race Delivery Type [id number] Vaginal Delivery Sean Calculation Initial Sean Date Initial Exam Date Initial Exam Provider Initial Ultrasound Date Last Menstrual Period Date Ultra Sound Weeks Gestation 0 Eighteen To Twenty Week Sean Update Ultra Sound Date Fundal Height At Umbil Quickening Date Ultra Sound Latest Weeks Gestation Final Sean Confirmed By Final Sean Confirmed Date Final Sean Date Ultra Sound Latest Days Gestation 0 0 Menstrual History Last Menstrual Date Menses Monthly On Bcp Conception Prior Menses Frequency Hcg Plus Date Menarche Onset Age Delivery Information Delivery Date Delivery Type Labor Anesthesia Weeks Gestation Incision Type Labor Labor Length Hrs Delivered By Post Complications Tubal Sterilization Discharge Date Comments 7 Discharge Information Feeding Method Contraceptive Method Maternal HG B and HCT Levels
--- OUTSIDE RECORDS SUMMARY | 2024-08-30 15:31 | XMS_ITS | Clinical Summary ---
Author Organization [facility] Address [address] [place] [address] Care Team Providers Care Instructor Industrial Design Name Role Phone Angela Jung MD Primary Care Provider [phone] Liz Parikh HORSE EXERCISER-COMPRESSED GAS TESTER Unavailable Source Comments [facility],non-owned Affiliates and Associated Physician Practices is amultiple site organization consisting of ambulatory clinics and hospital sitesin [place], [place], [place] and [place]. This disclosure is being madepursuant to the Care Everywhere program and may not contain all information available regarding this patient. Last updated 18.[facility] Allergies No known active allergies Medications * [...] 03/06/2017 3:17 PM CDT Plan of Treatment Health Maintenance Due Date Last Done Comments COLOGUARD (AGES 45-75) - COL ON CA SCREENING 1977 COLON MONITORING 1977 COLONOSCOPY - COLON CA SCREENING 1977 CT COLONOGRAPHY - COLON CA SCREENING 1977 Colorectal Cancer Screening 1977 FIT - COLON CA SCREENING 1977 FLEX SIG - COLON CA SCREENING 1977 LIPID TESTING 1977 PAP SMEAR 1977 HIV SCREENING 1992 HEPATITIS C SCREENING 06/08/1995 DTAP/TDAP/TD VACCINES (1 - Tdap) 1996 HEPATITIS B VACCINE (1 of 3 - 19+ 3-dose series) 1996 COVID-19 VACCINE ( - 2023-2 5 season) 2024 INFLUENZA VACCINE (#1) 2024 MAMMOGRAM 04/04/2024 04/04/2022 DEPRESSION SCREENING 07/06/2024 ZOSTER VACCINE (1 of 2) 2027 HIB VACCINE Aged Out No longer eligi ble based on patient's age to complete this topic HPV VACCINE Aged Out No longer eligi ble based on patient's age to complete this topic MENINGOCOCCAL (Group B) VACCINE Aged Out No longer eligible based on patient's age to complete this topic MENINGOCOCCAL VACCINE Aged Out No ramiro jie eligible based on patient's age to complete this topic PNEUMOCOCCAL VACCINE Aged Out No long er eligible based on patient's age to complete this topic Procedures Procedure Name Priority Date/Time Associated Diagnosis Comments MAMMO BILAT DIAGNOSTIC Routine 04/04/2022 from Last 3 Months or Most Recently Relevant to Health Maintenance Results * MAMMO BILAT DIAGNOSTIC (04/04/2022) Anatomical Region Laterality Modality Breast Bilateral Mammography Scanned Document MAMMO ORDERABLES from Last 3 Months or Most Recently Relevant to Health Maintenance Care Teams Instructor Industrial Design Relationship Specialty Start Date End Date Angela Jung MD [address] [place] [address] PCP - General Family Medicine 03/06/17 Liz Parikh APRN-COMPRESSED GAS TESTER [address] [place] [address] Nurse Practitioner [facility] 04/09/22
== END 2024-08-30 13:31 | disposition home or self-care (01) ==
PROVIDERS: PCP Internal Medicine; Visit Provider Internal Medicine
DX: R92.8 Other abnormal and inconclusive findings on diagnostic imaging of breast (principal)
CPT/HCPCS: 77061; 77065; G0279

== ENCOUNTER 2024-11-21 07:59 | Day surgery (SDC) | payer OTHER, SELFPAY ==
[2024-11-02 12:49] VITALS: BMI 19.1
--- NOTE | 2024-11-21 06:58 | WPDANESEPPF ---
Anes - Initial Pre Proc Eval Procedure: Operation Date: 11/21/24 10:00 Proposed Procedures p Screening Colonoscopy - Shaji Stover MD Date/Time: 11/21/24 06:58 Surgeon: Shaji Stover MD Pre Op Diagnosis: Neoplasm Screening Patient Data Age: 49 Gender: F Height: 1.6 m Weight: 49 kg Allergies Allergy/AdvReac Type Severity Reaction Status Date / Time No Known Allergies Allergy Verified 11/21/24 08:38 Home Medications Medication Instructions Recorded Confirmed Type No Home Medications 11/02/24 11/02/24 History Patient hx anesthesia problems: none Family hx anesthesia problems: none Results Review: All pre-operative results and documents have been reviewed as part of the pre-operative evaluation. [facility] Social History Social History Smoking status: Never smoker Alcohol intake: current Drinks per week: 2 Substance use: never Substance use type: does not use Living arrangements: with family Anes - Eval Final PreProcedure Day of Procedure 11/21/24 06:58 Patient weight: normal Heart: regular rate and rhythm Lungs: clear to auscultation and normal air movement Airway: Mallampati scale class II Neurological: alert and oriented Last oral intake: >/= 8 hours ASA classification: I Emergent: no Anesthetic plan: proceed Anesthesia type and monitoring: general GIVS and standard monitoring Results Review: All pre-operative results and documents have been reviewed as part of the pre-operative evaluation. Informed Consent: The patient's anesthetic plan and its attendant risks and benefits were discussed with the patient/family/POA. Questions were solicited and answers provided to the satisfaction of the patient/family/POA.
--- OUTSIDE RECORDS SUMMARY | 2024-11-21 08:35 | XMS_ITS | Clinical Summary ---
Author Organization [facility] Address [address] [place] [address] Care Team Providers Care Shag Truck Driver Name Role Phone Angela Jung MD Primary Care Provider [phone] Liz Parikh PROFESSIONAL SECURITY OFFICER-DIRECTOR OF ACCOUNTS RECEIVABLE Unavailable Source Comments [facility],non-owned Affiliates and Associated Physician Practices is amultiple site organization consisting of ambulatory clinics and hospital sitesin [place], [place], [place] and [place]. This disclosure is being madepursuant to the Care Everywhere program and may not contain all information available regarding this patient. Last updated 18.[facility] Allergies No known active allergies Medications * Be aware that medications may not be up to date on this document. Alwaysverify current medications with the patient. w/o A Vit-Fe Fum-FA (PRENATA PO) Active Ferrous Gluconate (IRON 27 PO) Active Social History Tobacco Use Types Packs/Day Years Used Date Smoking Tobacco: Never Smokeless Tobacco: Never Comments Unknown Sex and Gender Information Value Date Recorded Sex Assigned at Not on file Legal Sex Female 11:13 AM CDT Gender Identity Not on file [...] VACCINE ( - 2023-2 5 season) 2024 MAMMOGRAM 04/04/2024 04/04/2022 DEPRESSION SCREENING 07/06/2024 INFLUENZA VACCINE (Season Ended) 2025 ZOSTER VACCINE (1 of 2) 2027 HIB VACCINE Aged Out No longer eligi ble based on patient's age to complete this topic HPV VACCINE Aged Out No longer eligi ble based on patient's age to complete this topic MENINGOCOCCAL (Group B) VACC INE SHARED DECISION-MAKING Aged Out No longer eligibl e based on patient's age to complete this topic MENINGOCOCCAL GROUPS A/C/Y/W VACCINE Aged Out No longer eligible b ased on patient's age to complete this topic PNEUMOCOCCAL VACCINE Aged Out No long er eligible based on patient's age to complete this topic Procedures Procedure Name Priority Date/Time Associated Diagnosis Comments MAMMO BILAT DIAGNOSTIC Routine 04/04/2022 from Last 3 Months or Most Recently Relevant to Health Maintenance Results * MAMMO BILAT DIAGNOSTIC (04/04/2022) Anatomical Region Laterality Modality Breast Bilateral Mammography us Scanned Document MAMMO ORDERABLES Final Result from Last 3 Months or Most Recently Relevant to Health Maintenance Care Teams Shag Truck Driver Relationship Specialty Start Date End Date Angela Jung MD [address] [place] [address] PCP - General Family Medicine 03/06/17 Liz Parikh, YON-DIRECTOR OF ACCOUNTS RECEIVABLE [address] [place] [address] Nurse Practitioner [facility] 04/09/22
--- OUTSIDE RECORDS SUMMARY | 2024-11-21 08:35 | XMS_ITS | Clinical Summary ---
Author Organization [facility] Address [address] [place] [address] Care Team Providers Care Youth Officer Name Role Phone Darien Eduardo MD Primary Care Provider [phone] Allergies No known active allergies Medications triamcinolone [...] cyto smr crvx (ASC-US);Recorded Elsewhere: No Location: [facility] Source: EHR Chronic: N Practice ID: [id number] Billable Time: 10:00:00 AM 39 weeks gestation of ([facility]) 04/30/2017 05/19/2024 Overview (05/19/2024): 39 weeks gestation of ;Practice ID: [id number] Encounters Date Type Department Care Team Description 08/25/2024 Telephone [facility] [place] [address] [place] [address] Darien Eduardo MD Question from Last 3 Months Immunizations Immunization Administration Dates Next Due Fluzone (IIV3, Trivalent, [...] Comments Blood Pressure 103/68 08/01/2024 2:01 PM DATABASE CONSULTANT Pulse 74 08/01/2024 2:01 PM DATABASE CONSULTANT Temperature 36.6 C (97.8 F) 08/01/2024 2:01 PM DATABASE CONSULTANT Respiratory Rate 16 08/01/2024 2:01 PM DATABASE CONSULTANT Oxygen Saturation 99% 08/01/2024 2:01 PM DATABASE CONSULTANT Inhaled Oxygen Concentration - - Weight 49.5 kg (109 lb 1.6 oz) 08/01/2024 2:01 P M DATABASE CONSULTANT Height 165.1 cm (5' 5 ) 08/01/2024 2:01 PM DATABASE CONSULTANT Body Mass Index 18.16 08/01/2024 2:01 PM DATABASE CONSULTANT Plan of Treatment Upcoming Encounters Date Type Department Care Team (Late st Contact Info) Description 07/03/2025 9:40 AM DATABASE CONSULTANT Office Visit [facility] [place] [address] [place] [address] [address] [place], [place] [id number] Darien Eduardo MD [address] [place], [place] [id number] Health Maintenance Due Date Last Done Comments Colorectal Cancer Screening Colonoscopy (10 Years) 1977 Hepatitis B Vaccines (1 of 3 - 19+ 3-dose series) 1996 COVID-19 Vaccine (2023- season) 2024 05/02/2023, 05/14/2022, 05/15/2021, Additional history exists Annual Physical 06/27/2025 06/27/2024, 04/09/2022 Mammogram Screening 08/30/2026 08/30/2024, 07/19/2024, 07/19/2024, Additional history exists Cervical Cancer Screening Pap with HPV Testing (Age 30 to 64) Every 5 Years 04/01/2027 04/01/2022 DTaP, Tdap and Td Vaccines (2 - Td or Tdap) 04/02/2027 04/02/2017 Cervical Cancer Screening Pap Smear (Age 30 to 64) Every 3 Years 05/23/2027 05/23/2024, 04/01/2022 Cervical Cancer Screening with HPV 05/23/2027 Hepatitis C Completed 04/09/2022 PHQ-2 (Physician [place]) Completed 08/01/2024 Meningococcal B Vaccine Aged Out No l onger eligible based on patient's age to complete this topic Meningococcal Vaccine Aged Out No ramiro jie eligible based on patient's age to complete this topic Pneumococcal Vaccine: Pediatrics (0 to 5 Years) and At-Risk Patients (6 to 49 Years) Aged Out No longer eligible based on patient's age to complete this topic RSV Immunizations Under 20 Months Aged Out No longer eligible based on patient's age to complete this topic Procedures Procedure Name Priority Date/Time Associated Diagnosis Comments MG DIAGNOSTIC RT DIGI Routine 08/30/2024 12:00 AM DATABASE CONSULTANT Abnormal mammogram HEPATITIS C ANTIBODY Routine 04/09/2022 12:06 PM CDT Annual physical exam Encounter for medical examination to establish care General medical exam Encounter for hepatitis C screening test for low risk patient OUTSIDE CYTOPATH CERV/VAG INTERPRET (PAP) 04/01/2022 from Last 3 Months or Most Recently Relevant to Health Maintenance Results * MG DIAGNOSTIC RT DIGI (08/30/2024 12:00 AM DATABASE CONSULTANT) Anatomical Region Laterality Modality Breast Right Mammography 08/30/2024 Darien Eduardo MD MAMMO Final Result * HEPATITIS C AB ([facility] ONLY) (04/09/2022 12:06 PM CDT) HEPATITIS C AB NON-REACTI VE NON-REACT LOUISA 04/09/2022 10:08 PM CDT [facility] Comment: ANTIBODIES TO HCV NOT DETECTED. DOES NOT EXCLUDE THE POSSIBILITY OF EXPOSURE TO HCV. 04/09/2022 12:0 6 PM CDT Darien Eduardo MD LABORATORY Final Result [facility] [address] [place] [address], [place] [phone] * PAP SMEAR WITH HPV (04/01/2022) 04/01/2022 [facility] Scanned SCANNING Final Resu lt from Last 3 Months or Most Recently Relevant to Health Maintenance Insurance [facility] Care Teams Youth Officer Relationship Specialty Start Date End Date Darien Eduardo MD [address] [place] [address] PCP - General INTERNAL MEDICINE 04/09/22
--- OUTSIDE RECORDS SUMMARY | 2024-11-21 08:35 | XMS_ITS | Clinical Summary ---
Author Organization [facility] Address [address] [place] [address] Care Team Providers Care Box Liner Name Role Phone Darien Eduardo MD Primary Care Provider [phone] Allergies No known active allergies Medications hydrocortisone [...] cyto smr crvx (ASC-US);Recorded Elsewhere: No Location: [facility] Source: EHR Chronic: N Practice ID: [id number] Billable Time: 10:00:00 AM Precipitate labor 04/30/2017 Overview (04/24/2023): Precipitate labor;Practice ID: [id number] Hemorrhage affecting 09/23/2016 Overview (04/24/2023): Other hemorrhage in early ;Recorded Elsewhere: No Location: [facility] Source: EHR Chronic: N Practice ID: [id number] Billable Time: 10:00:00 AM Secondary amenorrhea 09/17/2016 Overview (04/24/2023): Secondary amenorrhea;Recorded Elsewhere: No Location: [facility] Source: EHR Chronic: N Practice ID: [id number] Billable Time: 02:15:00 PM Delivery normal 11/30/2012 Overview (04/24/2023): Normal delivery;Practice ID: [id number] Uterine size-date discrepancy 06/06/2012 Overview (04/24/2023): UTERINE SIZE SMOOTH-ANTEPAR;Recorded Elsewhere: No Location: [facility] Source: EHR Chronic: N Practice ID: [id number] Billable Time: 02:00:00 PM Amenorrhea 05/18/2012 Overview (04/24/2023): Absence of menstruation;Recorded Elsewhere: No Location: [facility] Source: EHR Chronic: N Practice ID: [...] patient's age to complete this topic Insurance [facility] [facility] [employer] Care Teams Box Liner Relationship Specialty Start Date End Date Darien Eduardo MD [address] [place] [address] PCP - General Internal Medicine 10/22/22
--- OUTSIDE RECORDS SUMMARY | 2024-11-21 08:35 | XMS_ITS | Data Portability ---
Author Organization 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 [email or web address] Not available 05/19/2024 16:45:18 Plan of Treatment Reminders Order Date Submit Date Provider Last Modified By Organization Details Last Modified Time Details Appointments None recorded . Lab pap, IG + HR HPV - HPV regardle ss but if HPV is positive need subtypin g 16,18/45 2023 024 [facility] (Lab), [address], [place], [address], 4 16:17:51 prolacti n, serum 2021 022 [facility] (Lab), [address], [place], [address], 2 06:32:25 TSH, serum or plasma 2021 022 [facility] (Lab), [address], [place], [address], 2 06:32:25 lipid panel, blood 2020 021 [facility] (Lab), [address], [place], [address], 1 04:16:38 CBC w/ auto diff 2020 021 [facility] (Lab), [address], [place], [address], 1 04:16:37 CMP, serum or plasma 2020 021 [facility] (Lab), [address], [place], [address], 1 04:16:38 TSH, serum or plasma 2020 021 [facility] (Lab), [address], [place], [address], 1 04:16:39 HbA1c (hemoglo bin A1c), blood 2020 021 [facility] (Lab), [address], [place], [address], 1 04:16:39 vitamin D, 25-hydro xy, total, serum 2020 021 [facility] (Lab), [address], [place], [address], 1 04:16:40 lh + FSH, serum 2020 021 [facility] (Lab), [address], [place], [address], 1 04:16:40 Referral None recorded . Procedures colonosc opy screenin g (PROC) [address] [facility], [address], [id number], [place], [address], 4 15:42:48 Surgeries None recorded . Imaging MAMMO, screenin g, digital, bilatera l 2023 024 [facility], [address], [place], [address], 4 04:02:25 MAMMO, diagnost ic, digital, bilatera l 2021 [facility], [address], [place], [address], 2 10:37:56 US, breast, bilatera l, complete 2021 022 [facility], [address], [place], [address], 2 13:06:41 Medication Orders triamcin olone acetonid e 0.1 % topical ointment [address] [facility], [address], [place], [address], 4 15:42:46 metronid azole 0.75 % (37.5 mg/5 gram) vaginal gel [id number] [facility], [address], [place], [address], 4 15:42:46 metronid azole 0.75 % (37.5 mg/5 gram) vaginal gel 2021 022 [email or web address] [id number], [address], [place], [place], [id number], 4 16:45:14 Metrogel Vaginal 0.75 % (37.5 mg/5 gram) [email or web address] [id number], [address], [place], [place], [id number], 4 16:45:14 Patient TargetsNo targets recorded. Patient InstructionsNo instructions recorded. Reason for Referral None Reported. Results Created Date Observation Date Name Description Value Unit Range Abnormal Flag Note LastModifiedBy Organization Detail LastModifiedTime 03/18/2003/18/2021 CBC W/DIF F WBC 6.5 10'3/ uL 3.6-10 .2 Not Available [facility] (Lab) [address], [place], [address], 03/19/2021 04:16:37 03/18/2003/18/2021 CBC W/DIF F RBC 4.20 10'6/ uL (based on docume nted legal sex) 4.10-5 .30 Not Available [facility] (Lab) [address], [place], [address], 03/19/2021 04:16:37 03/18/2003/18/2021 CBC W/DIF F HGB 12.9 g/dL (based on docume nted legal sex) 11.9-1 5.8 Not Available [facility] (Lab) [address], [place], [address], 03/19/2021 04:16:37 03/18/20 21 03/18/2021 CBC W/DIF F HCT 40.9 % (based on docume nted legal sex) 37.4-4 8.3 Not Available [facility] (Lab) [address] [place], [address], 03/19/2021 04:16:37 03/18/20 21 03/18/2021 CBC W/DIF F MCV 97.0 fL 82.0-9 9.0 Not Available [facility] (Lab) [address], [place], [address], 03/19/2021 04:16:37 03/18/20 21 03/18/2021 CBC W/DIF F MCH 31.0 pg 27.0-3 3.0 Not Available [facility] (Lab) [address], [place], [address], 03/19/2021 04:16:37 03/18/20 21 03/18/2021 CBC W/DIF F MCHC 32.0 g/dL 32.0-3 6.0 Not Available [facility] (Lab) [address], [place], [address], 03/19/2021 04:16:37 03/18/20 21 03/18/2021 CBC W/DIF F RDW 13.0 % 11.0-1 5.0 Not Available [facility] (Lab) [address], [place], [address], 03/19/2021 04:16:37 03/18/20 21 03/18/2021 CBC W/DIF F plt 186 10'3/ uL 150-45 0 Not Available [facility] (Lab) [address], [place], [address], 03/19/2021 04:16:37 03/18/20 21 03/18/2021 CBC W/DIF F MPV 11.1 fL 9.8-12 .7 Not Available [facility] (Lab) [address], [place], [address], 03/19/2021 04:16:37 03/18/20 21 03/18/2021 CBC W/DIF F NRBC's 0.00 % 0 Not Available [facility] (Lab) [address], [place], [address], 03/19/2021 04:16:37 03/18/20 21 03/18/2021 CBC W/DIF F absolute NRBCs 0.0 10'3/ uL 0 Not Available [facility] (Lab) [address] [facility], [place], [address], 03/19/2021 04:16:37 03/18/20 21 03/18/2021 CBC W/DIF F neutrophils 59.0 % 37.0-7 2.0 Not Available [facility] (Lab) [address] [facility], [place], [address], 03/19/2021 04:16:37 03/18/20 21 03/18/2021 CBC W/DIF F lymphocytes 31.0 % 16.0-4 8.0 Not Available [facility] (Lab) [address] [facility], [place], [address], 03/19/2021 04:16:37 03/18/20 21 03/18/2021 CBC W/DIF F monocytes 8.0 % 4.0-14 .0 Not Available [facility] (Lab) [address], [place], [address], 03/19/2021 04:16:37 03/18/20 21 03/18/2021 CBC W/DIF F eosinophils 1.0 % 0.0-9. 0 Not Available [facility] (Lab) [address] [facility], [place], [address], 03/19/2021 04:16:37 03/18/20 21 03/18/2021 CBC W/DIF F basophils 1.0 % 0.0-2. 0 Not Available [facility] (Lab) [address] [facility], [place], [address], 03/19/2021 04:16:37 03/18/20 21 03/18/2021 CBC W/DIF F immature granulocytes 0.0 % no define d refere nce range Not Available [facility] (Lab) [address], [place], [address], 03/19/2021 04:16:37 03/18/20 21 03/18/2021 CBC W/DIF F absolute neutrophils 3.8 10'3/ uL 1.1-6. 0 Not Available [facility] (Lab) [address] [facility], [place], [address], 03/19/2021 04:16:37 03/18/20 21 03/18/2021 CBC W/DIF F absolute lymphocytes 2.0 10'3/ uL 0.7-3. 4 Not Available [facility] (Lab) [address] [facility], [place], [address], 03/19/2021 04:16:37 03/18/20 21 03/18/2021 CBC W/DIF F absolute monocytes 0.5 10'3/ uL 0.3-1. 0 Not Available [facility] (Lab) [address] [facility], [place], [address], 03/19/2021 04:16:37 03/18/20 21 03/18/2021 CBC W/DIF F absolute eosinophils 0.1 10'3/ uL 0.0-0. 6 Not Available [facility] (Lab) [address] [facility], [place], [address], 03/19/2021 04:16:37 03/18/20 21 03/18/2021 CBC W/DIF F absolute basophils 0.1 10'3/ uL 0.0-0. 1 Not Available [facility] (Lab) [address] [facility], [place], [address], 03/19/2021 04:16:37 03/18/20 21 03/18/2021 CBC W/DIF [...] resul ts are expec nahum. Not Available [facility] (Lab) [address] [facility], [place], [address], 03/19/2021 04:16:37 03/18/20 21 03/18/2021 LIPID PANEL ,AMA (LDL- CALC) total cholesterol 129 mg/dL 0-199 Not Available [facility] (Lab) [address] [facility], [place], [address], 03/19/2021 04:16:38 03/18/20 21 03/18/2021 LIPID PANEL ,AMA (LDL- CALC) triglyceride s 105 mg/dL 0.00-1 50.00 NCEP Refer ence Value s for Trigl yceri meena: Rosa Isela l: <150 mg/dL Borde rline High: 150 - 199 mg/dL High: 200 - 499 mg/dL Very High: >/= 500 mg/dL Not Available [facility] (Lab) [address] [place], [address], 03/19/2021 04:16:38 03/18/20 21 03/18/2021 LIPID PANEL ,AMA (LDL- CALC) HDL cholesterol 66 mg/dL >40 Not Available [facility] (Lab) [address] [place], [address], 03/19/2021 04:16:38 03/18/20 21 03/18/2021 LIPID PANEL ,AMA (LDL- CALC) LDL cholesterol [...] mg/dL , HDL <40 mg/dL Not Available [facility] (Lab) [address] [place], [address], 03/19/2021 04:16:38 03/18/20 21 03/18/2021 LIPID PANEL ,AMA (LDL- CALC) non-HDL cholesterol 63 mg/dL no refere nce range A reaso nable goal for non-H DL naya stero l is one that is 30 mg/dL highe r than the LDL naya stero l goal. Not Available [facility] (Lab) [address] [facility], [place], [address], 03/19/2021 04:16:38 03/18/20 21 03/18/2021 LIPID PANEL ,AMA (LDL- CALC) chol/HDL ratio 2.0 . 0.0-5. 0 Not Available [facility] (Lab) [address] [facility], [place], [address], 03/19/2021 04:16:38 03/18/20 21 03/18/2021 CMP(C OMPRE HENSI VE METAB OLIC PANEL ) sodium 139 mmol/ L 136-14 5 Not Available [facility] (Lab) [address] [facility], [place], [address], 03/19/2021 04:16:38 03/18/20 21 03/18/2021 CMP(C OMPRE HENSI VE METAB OLIC PANEL ) potassium 4.1 mmol/ L 3.5-5. 1 Not Available [facility] (Lab) [address] [facility], [place], [address], 03/19/2021 04:16:38 03/18/20 21 03/18/2021 CMP(C OMPRE HENSI VE METAB OLIC PANEL ) chloride 107 mmol/ L 98-107 Not Available [facility] (Lab) [address] [place], [address], 03/19/2021 04:16:38 03/18/20 21 03/18/2021 CMP(C OMPRE HENSI VE METAB OLIC PANEL ) carbon dioxide 25 mmol/ L 21-31 Not Available [facility] (Lab) [address] [place], [address], 03/19/2021 04:16:38 03/18/20 21 03/18/2021 CMP(C OMPRE HENSI VE METAB OLIC PANEL ) anion gap 7 mmol/ L 4-13 Not Available [facility] (Lab) [address], [place], [address], 03/19/2021 04:16:38 03/18/20 21 03/18/2021 CMP(C OMPRE HENSI VE METAB OLIC PANEL ) blood urea nitrogen 13 mg/dL 7-25 Not Available [facility] (Lab) [address], [place], [address], 03/19/2021 04:16:38 03/18/20 21 03/18/2021 CMP(C OMPRE HENSI VE METAB OLIC PANEL ) creatinine 0.58 mg/dL 0.60-1 .30 low Not Available [facility] (Lab) [address], [place], [address], 03/19/2021 04:16:38 03/18/20 21 03/18/2021 CMP(C OMPRE HENSI VE METAB OLIC PANEL ) GFR () 138 mL/mi n/1.7 3_m2 60-300 Not Available [facility] (Lab) [address] [facility], [place], [address], 03/19/2021 04:16:38 03/18/20 21 03/18/2021 CMP(C OMPRE HENSI VE METAB OLIC PANEL ) GFR (others) 113 mL/mi n/1.7 3_m2 60-300 Not Available [facility] (Lab) [address] [facility], [place], [address], 03/19/2021 04:16:38 03/18/20 21 03/18/2021 CMP(C OMPRE HENSI VE METAB OLIC PANEL ) calcium 9.1 mg/dL 8.6-10 .2 Not Available [facility] (Lab) [address], [place], [address], 03/19/2021 04:16:38 03/18/20 21 03/18/2021 CMP(C OMPRE HENSI VE METAB OLIC PANEL ) glucose 79 mg/dL 70-100 Not Available [facility] (Lab) [address] [facility], [place], [address], 03/19/2021 04:16:38 03/18/20 21 03/18/2021 CMP(C OMPRE HENSI VE METAB OLIC PANEL ) protein, total 6.7 g/dL 6.4-8. 3 Not Available [facility] (Lab) [address] [facility], [place], [address], 03/19/2021 04:16:38 03/18/20 21 03/18/2021 CMP(C OMPRE HENSI VE METAB OLIC PANEL ) albumin 4.2 g/dL 3.5-5. 0 Not Available [facility] (Lab) [address] [facility], [place], [address], 03/19/2021 04:16:38 03/18/20 21 03/18/2021 CMP(C OMPRE HENSI VE METAB OLIC PANEL ) ALT 13 units /L 9-43 Not Available [facility] (Lab) [address] [facility], [place], [address], 03/19/2021 04:16:38 03/18/20 21 03/18/2021 CMP(C OMPRE HENSI VE METAB OLIC PANEL ) alkaline phosphatase 56 units /L 34-104 Not Available [facility] (Lab) [address] [facility], [place], [address], 03/19/2021 04:16:38 03/18/20 21 03/18/2021 CMP(C OMPRE HENSI VE METAB OLIC PANEL ) AST 15 units /L 13-39 Not Available [facility] (Lab) [address] [facility], [place], [address], 03/19/2021 04:16:38 03/18/20 21 03/18/2021 CMP(C OMPRE [...] will be imple mente d. Not Available [facility] (Lab) [address] [facility], [place], [address], 03/19/2021 04:16:38 03/18/20 21 03/18/2021 TSH, REFLE X FREE T4 TSH 1.69 uIU/m L 0.30-5 .33 Not Available [facility] (Lab) [address] [facility], [place], [address], 03/19/2021 04:16:39 03/18/20 21 03/18/2021 HEMOG LOBIN A1C hemoglobin A1C 5.8 % [...] >8.0% Actio n sugge sted Not Available [facility] (Lab) [address] [facility], [place], [address], 03/19/2021 04:16:39 03/18/2003/18/2021 VITAM IN D, 25-OH (TOTA L D2/D3 ) vitamin D, 25-hydroxy, total 37.0 NG/mL 30-80 NOTE: Defic iency : <20 ng/mL Insuf ficie ncy: 20-29 ng/mL Optim um Level : 30-80 ng/mL Possi ble Toxic ity: >80 ng/mL Most patie nts with toxic ity have level s >150 ng/mL . Not Available [facility] (Lab) [address], [place], [address], 03/19/2021 04:16:40 03/18/20 21 03/18/2021 FSH / LH FSH 4.5 mIU/m L This assay was perfo rmed using [employer] n reage nts and test kits. Value s obtai karly with other assay metho ds or kits canno t be used inter [facility] eanoxapater . Femal es Folli cular : 3.5-1 2.5 mIU/m L Ovula tion: 4.7-2 1.5 mIU/m L Lutea l: 1.7-7 .7 mIU/m L Postm enopa use: 25.8- 134.8 mIU/m L Not Available [facility] (Lab) [address], [place], [address], 03/19/2021 04:16:40 03/18/20 21 03/18/2021 FSH / LH LH 2.0 mIU/m L This assay was perfo rmed using [employer] reage nts and test kits. Value s obtai karly with other assay metho ds or kits canno t be used inter [facility] . Femal es Mid-F ollic ular: 2.4-1 2.6 mIU/m L Mid-C ycle: 14.0- 95.6 mIU/m L Mid-L uteal : 1.0-1 1.4 mIU/m L Postm enopa use: 7.7-5 8.5 mIU/m L Not Available [facility] (Lab) [address], [place], [address], 03/19/2021 04:16:40 03/18/20 21 03/18/2021 VAGIN ITIS/ VAGIN OSIS, DNA PROBE carlos alberto sp. detection, direct probe Negati ve negati ve Not Available [facility] (Lab) [address] [facility], [place], [address], 03/20/2021 19:54:34 03/18/20 21 03/18/2021 VAGIN ITIS/ VAGIN OSIS, DNA PROBE gardnerella vag. detection, direct probe Negati ve negati ve Not Available [facility] (Lab) [address] [facility], [place], [address], 03/20/2021 19:54:34 03/18/20 21 03/18/2021 VAGIN ITIS/ VAGIN OSIS, DNA PROBE trichomonas vag. 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 CLIN[facility] INFOR MATIO N: Menst rual Statu s: LMP (if appli cable ): 2020 Clini kiah Histo ry/Pr eviou s Pap: Type of Neopl trent (if appli cable ): Signi fican t Clini kiah Findi ngs: Other Histo ry: Hormo gomez [...] ng do not corre late with physi kiah and/o r histo rical findi ngs, furth er inves tigat ion is recom sophia d, as clini twila diaz nted. Not Available [facility] (Lab) [address], [place], [address], 03/20/2021 19:54:35 03/24/20 22 03/24/2022 PROLA CTIN prolactin, total 9.01 NG/mL 4.79-2 3.30 This assay was perfo rmed using [employer] n reage nts and test kits. Value s obtai karly with other assay metho ds or kits canno t be used inter teresita valencia . Not Available [facility] [address] [place], [address], 03/25/2022 06:32:24 03/24/20 22 03/24/2022 TSH, REFLE X FREE T4 TSH 1.61 uIU/m L 0.30-5 .33 Not Available [facility] [address] [place], [address], 03/25/2022 06:32:25 04/01/20 22 04/01/2022 IMAGE GUIDE D PAP AND HPV REGAR DLESS image guided Pap, HPV regardless of Pap result SEE RESULT S BELOW CASE REPOR T: Cytol ogy Gynec ologi kiah Repor t Case: [id number] Autho henri g Provi adamaris: Rj Mota Colle cted: 04/01 1634 SENIOR PASTOR Order ing Locat ion: [place] Patho [place] Recei rebeka: 04/02 0738 First Scree n: Segundo Perrin, CT Speci men: Scree aruna Pap - Image d, Cervi x STATE MENT OF ADEQU ACY: Satis facto ry for evalu ation Trans forma tion zone compo nent prese nt FINAL DIAGN OSIS: Negat adilson for Intra epith elial Rolf davis or Isaiah viera (NIL) . Elect dionne allen ramana d by Segundo Perrin, CT on 2021 [...] Thinp rep Imagi ng Syste m. CLINI KIAH INFOR MATIO N: Menst rual Statu s: LMP (if appli cable ): Clini kiah Histo ry/Pr eviou s Pap: Type of Neopl trent (if appli cable ): Signi fican t Clini kiah Findi ngs: Other Histo ry: Hormo gomez (if appli cable ): PAP EDUCA JONES L NOTE: The Pap Test is a scree aruna test with an inher ent false negat adilson rate. Liqui d-bas ed sampl ing may decre ase, but will not elimi jeyson, false negat aidlson resul ts. A negat adilson resul t [...] ng do not corre late with physi kiah and/o r histo rical findi ngs, furth er inves tigat ion is recom sophia d, as clini twila diaz nted. 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 Elect dionne boles d by Rodriguez Lacey, CT on 05/31 [...] Thinp rep Imagi ng Syste m. CLINI KIAH INFOR MATIO N: Menst rual Statu s: LMP (if appli cable ): Clini kiah Histo ry/Pr eviou s Pap: Type of Neopl trent (if appli cable ): Signi fican t Clini kiah Findi ngs: Other Histo ry: Hormo gomez (if appli cable ): PAP EDUCA JONES L NOTE: The Pap Test is a scree rauna test with an inher ent false negat [...] ng do not corre late with physi kiah and/o r histo rical findi ngs, furth er inves tigat ion is recom sophia d, as clini twila warrmesfin nted. Not Available [facility] (Lab) [address] [facility], [place], [address], 05/31/2024 16:17:51 04/07/20 22 04/04/2022 MAMMO , diagn ostic , digit al, bilat eral No observ ation record ed. [place] [address] [facility] [address], [place], [address], 04/08/2022 14:59:23 Result Notes None recorded. Problems Name Problem SNOMED Code Status Onset Date Resolution Date Notes Provider Name and Address Organization Details Recorded Time Educatio n Completed 201603/18/2021 Encounte r for other general counseli ng and advice on contrace ption;Re corded Elsewher e: No [facility]: EHR Food Beverage Attendant des: N Practi ce ID: [id number] Martín lable Time: 10:00:00 AM Vandana Kern null, [facility] 1 10:33:22 Normal pregnanc y in multigra katina [id number] Completed 201603/18/2021 Encounte r for supervis ion of other normal pregnanc y, first trimeste r;Record ed Elsewher e: No Locat ion: [facility] S ource: EHR Food Beverage Attendant des: N Cara ce ID: 0001 Martín lable Time: 03:15:00 PM Vandana romo, [facility] 1 10:33:37 Screenin g for malignan t neoplasm of rectum Completed 201603/18/2021 Encounte r for screenin g for malignan t neoplasm of rectum;R ecorded Elsewher e: No Locat ion: [facility] S ource: EHR Food Beverage Attendant des: N Cara ce ID: 0001 Martín lable Time: 01:00:00 PM Vandana romo [facility] 1 10:33:50 Finding of pattern of menstrua l cycle Completed 201803/18/2021 Other specifie d irregula r menstrua tion;Rec orded Elsewher e: No Locat ion: [facility] S ource: EHR Food Beverage Attendant des: N Cara ce ID: 0001 Martín lable Time: 02:15:00 PM Vandana romo [facility] 10:33:25 anatomy study Completed 201203/18[facility]20[facility];R ecorded Elsewher e: No Locat ion: [facility] S ource: EHR Food Beverage Attendant des: N Terrellti ce ID: 0001 Martín lable Time: 11:00:00 AM Vandana romo [facility] 1 10:33:24 Pregnanc y test positive [id number] Completed 201103/18/2021 Pregnanc y examinat ion or test, positive result;R ecorded Elsewher e: No Locat ion: [facility] S ource: EHR Food Beverage Attendant des: N Practi ce ID: 0001 Martín lable Time: 03:30:00 PM Vandana Kern [facility] 1 10:33:45 Uterine size for dates discrepa ncy [id number] Completed 201103/18/2021 UTERINE SIZE MEENA-ANTE PAR;Ignacio rded Elsewher e: No Locat ion: [facility] S ource: EHR Food Beverage Attendant des: N Practi ce ID: [id number] Martín lable Time: 02:00:00 PM Vandana Kern [facility] 10:34:[address] Concept Completed 201503/18/2021 Encntr for general adult medical exam w/o abnormal findings ;Recorde d Elsewher e: No Locat ion: [facility] S ource: EHR Food Beverage Attendant des: N Terrellti ce ID: 0001 Martín lable Time: 10:30:00 AM Vandana Kern [facility] 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 1 10:34:00 Amenorrh ea [id number] Completed 201103/18/2021 Absence of menstrua tion;Rec orded Elsewher e: No Locat ion: [facility] S ource: EHR Food Beverage Attendant des: N Practi ce ID: 0001 Martín lable Time: 03:30:00 PM Vandana [id number]|2024-11-21 08:35:00|2024-11-21 08:35:00|XMS_ITS|BKG DAEMON|External Medical Summaries|[id number]|" Clinical Summary Created on: November 21, 2024 Trudy Reza : 1975 Sex: Female Author Organization [employer] Tesfaye brooke - 2020 [address] [facility] [address] [place] [address] Phone Care Team Providers 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 Name Role Phone José Miguel Cox MD Primary Care Provider Social History Tobacco Use Types Packs/Day Years Used Date Smoking Tobacco: Never Assessed Comments Unknown Sex and Gender Information Value Date Recorded Sex Assigned at Not on file Legal Sex 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 Gender Identity Not on file Sexual Orientation Not on file Plan of Treatment Health Maintenance Due Date Last Done Comments DTAP/TDAP/TD VACCINES (1 - Tdap) 1996 HEPATITIS B VACCINES (1 of 3 - 19+ 3-dose series) 02/1996 HPV/Cotest (21-29) 1998 CERVICAL CANCER SCREENING 2007 HPV/Cotest (30-65) 2007 PAP SMEAR 2007 BREAST CANCER SCREENING 2017 COLORECTAL SCREENING 2022 Colorectal Cancer Screening 2022 FIT-DNA Q 3 years 2022 FIT/FOBT Q 1 year 2022 Flex Sig/CT Colonography Q 5 years 2022 INFLUENZA VACCINE (#1) 2024 Insurance [facility] OPEN ACCESS HMO Care Teams Lighting Fixtures Decorator Relationship Specialty Start Date End Date José Miguel Cox MD PCP - General Family Practice 07/29/12 "
--- OUTSIDE RECORDS SUMMARY | 2024-11-21 08:35 | XMS_ITS | Referral Summary ---
Author Organization [facility] Address [address] [place] [address] Care Team Providers Care Swing Grinder Name Role Phone Darien Eduardo MD Primary Care Provider Allergies No known active allergies Medications hydrocortisone [...] cyto smr crvx (ASC-US);Recorded Elsewhere: No Location: [facility] Source: EHR Chronic: N Practice ID: [id number] Billable Time: 10:00:00 AM Precipitate labor 04/30/2017 Overview (04/24/2023): Precipitate labor;Practice ID: [id number] Hemorrhage affecting 09/23/2016 Overview (04/24/2023): Other hemorrhage in early ;Recorded Elsewhere: No Location: [facility] Source: EHR Chronic: N Practice ID: [id number] Billable Time: 10:00:00 AM Secondary amenorrhea 09/17/2016 Overview (04/24/2023): Secondary amenorrhea;Recorded Elsewhere: No Location: [facility] Source: EHR Chronic: N Practice ID: [id number] Billable Time: 02:15:00 PM Delivery normal 11/30/2012 Overview (04/24/2023): Normal delivery;Practice ID: [id number] Uterine size-date discrepancy 06/06/2012 Overview (04/24/2023): UTERINE SIZE SMOOTH-ANTEPAR;Recorded Elsewhere: No Location: [facility] Source: EHR Chronic: N Practice ID: [id number] Billable Time: 02:00:00 PM Amenorrhea 05/18/2012 Overview (04/24/2023): Absence of menstruation;Recorded Elsewhere: No Location: [facility] Source: EHR Chronic: N Practice ID: [id number] [...] Plan of Treatment Not on file Insurance [facility] [employer] [employer] Care Teams Swing Grinder Relationship Specialty Start Date End Date Darien Eduardo MD [address] [place] [id number] PCP - General Internal Medicine 10/22/22
[2024-11-21 08:46] VITALS: BMI 18.1
[2024-11-21 08:51] VITALS: BP 110/72; PULSE 79; RESP 14; TEMP 36.7; O2SAT 100
[2024-11-21] MEDS: LACTATED RINGERS 1,000 ML 150 ML IV CONT (09:01)
--- NOTE | 2024-11-21 10:11 | P.HP_ITS ---
H&P: HPI History of Present Illness Date/Time: 11/21/24 10:11 Chief Complaint: Screening colonoscopy Narrative: This is the patient's first colonoscopy. There are no GI symptoms and there is no family history of colorectal cancer. Review of Systems Review of Systems: All systems reviewed & are unremarkable except as noted in HPI and below [facility] Social History Social History Smoking status: Never smoker Alcohol intake: current Drinks per week: 2 Substance use: never Substance use type: does not use Living arrangements: with family Meds Home Medications and Allergies Home Medications Medication Instructions Recorded Confirmed Type No Home Medications 11/02/24 11/02/24 History Allergies Allergy/AdvReac Type Severity Reaction Status Date / Time No Known Allergies Allergy Verified 11/21/24 08:38 Vital Signs Vital Signs - 24 hr 11/21/24 08:51 Temperature 98.1 F Pulse Rate 79 Respiratory Rate 14 Blood Pressure 110/72 Pulse Oximetry 100 Oxygen Delivery Room Air Exam Const: General: cooperative and healthy appearing Resp: Effort & Inspection: normal respiratory effort and able to speak in complete sentences Auscultation: clear to auscultation bilaterally Cardio: Rate: regular rate Rhythm: regular rhythm GI: Inspection: normal to inspection GI Palp: No No hepatosplenomegaly pres ent Auscultation: normal bowel sounds Rectal Exam: deferred Skin: General skin exam: normal color Psych: Appearance: grossly normal Mental Status: mental status grossly normal Assessment and Plan Assessment and plan (1) Encounter for screening colonoscopy: Code(s): Z12.11 - Encounter for screening for malignant neoplasm of colon Status: Acute Assessment and Plan: The patient is deemed a good candidate for the procedure. Consent signed. Will proceed.
[2024-11-21] MEDS: SIMETHICONE ORAL SUSPENSION 20 MG/0.3 ML 30 ML BOTTLE 0.6 ML IRRIGATION (10:30)
[2024-11-21 10:39] VITALS: BP 84/57; PULSE 75; RESP 14; O2SAT 100
[2024-11-21 10:49] VITALS: BP 89/59; PULSE 66; RESP 14; O2SAT 100
[2024-11-21 10:59] VITALS: BP 99/66; PULSE 63; RESP 16; O2SAT 100
--- NOTE | 2024-11-21 13:17 | WPDANESPN ---
Anes - Prog Note Post-Op Date/Time: 11/21/24 13:17 Cardiovascular status: normal Respiratory status: normal Airway patency: baseline Mental status: baseline Post-Op hydration status: normal Vital Signs: Last Vital Signs Temp 36.7 C 11/21/24 08:51 Pulse 63 11/21/24 10:59 Resp 16 11/21/24 10:59 BP 99/66 L 11/21/24 10:59 Pulse Ox 100 11/21/24 10:59 O2 Del Method Room Air 11/21/24 10:59 Pain Score (VAS): 0 I/O: Intake & Output 11/20/24 11/21/24 11/21/24 23:59 07:59 15:59 Intake Total 600 Balance 600 Post-procedural complaints: none Patient Feedback: Patient satisfied with anesthetic care. Other Findings: Patient vital signs back to baseline. Patient denies nausea and vomiting. Patient's pain under control. Patient OK for discharge.
== END 2024-11-21 11:15 | disposition home or self-care (01) ==
PROVIDERS: PCP Internal Medicine; Visit Provider Internal Medicine Gastroenterology
PROC: 0DJD8ZZ Inspection of Lower Intestinal Tract, Via Natural or Artificial Opening Endoscopic (ICD-10-PCS; CPT 45378; principal; 2024-11-21 10:00)
DX: Z12.11 Encounter for screening for malignant neoplasm of colon (principal)
CPT/HCPCS: 45378